=== PATIENT | male | born 1975 | race Caucasian/White ===

== ENCOUNTER 2024-05-25 18:18 | Inpatient (IN) | payer MEDICAID, SELFPAY ==
[2024-05-25] VITALS (21 sets, daily range): BP systolic 83–147; BP diastolic 40–96; PULSE 78–101; RESP 14–24; TEMP 36.6–36.7; O2SAT 97–100; BMI 25.1
--- NOTE | 2024-05-25 18:49 | PD.EDRECHK ---
ED Recheck Abnl Lab Rx-RME/HPI General Chief Complaint: Recheck/Abnormal Lab/Rx Stated Complaint: HYPOGLYCEMIA Time Seen by Provider: 05/25/24 18:36 Source: patient and EMS Arrival date/time: 05/25/24 18:18 Mode of arrival: EMS Limitations: no limitations RME / HPI RME / HPI narrative: Dr. Briones?s Main ED Evaluation: 49-year-old male with a history of cirrhosis and gallstones (not surgically managed due to high risk) presents to the emergency department following a hypoglycemic event. Per EMS report, his fingerstick blood glucose was 33 mg/dL, and he was administered a 250 mL bolus of D10 en route, which improved his glucose to 130 mg/dL. The patient reports that he took his insulin as scheduled today. He also states that he was recently discharged from [facility] after an ICU admission, reportedly related to his cirrhosis. He denies any additional symptoms at this time. He denies any current antibiotics. Related Data Home Medications ?Medication ?Instructions ?Recorded ?Confirmed Glyburide/Metformin Hcl PO BID ##0 10/19/09 (Glyburide-Metformin 5-500 Mg) Insulin Lispro (Humalog Mix 75/25 22 units SQ QAM ##0 10/19/09 Pen) insulin detemir U-100 100 unit/mL 42 unit SQ QPM ##0 10/19/09 (3 mL) subcutaneous pen (Levemir FlexPen) Previous Rx's ?Medication ?Instructions ?Recorded albuterol sulfate 90 mcg/actuation 1 - 2 puff inhalation Q6HR PRN 05/18/16 aerosol inhaler (ProAir HFA) WHEEZING #1 inh Allergies Allergy/AdvReac Type Severity Reaction Status Date / Time NKA* Allergy Uncoded 05/09/12 22:45 Review of Systems Review of Systems Systems Reviewed: All systems reviewed, normal except as documented Past Medical History Past Medical History CARDIAC: Positive Hypertension; Negative Congestive Heart Failure RESPIRATORY: Negative Chronic Obstructive Pulmonary Disease (COPD) GENITOURINARY: Positive Renal Disease ENDOCRINE: Negative Diabetes Mellitus Type 1 Social History SMOKING STATUS: Never smoker ED Exam General Limitations: Present no limitations General appearance: Present alert and in no apparent distress Head Head exam: Present atraumatic Eye Eye exam: Present normal appearance, PERRL and EOMI ENT ENT exam: Present normal exam, normal oropharynx and mucous membranes moist Neck Neck exam: Present normal inspection, full ROM and trachea midline Chest Chest inspection: Present normal inspection and symmetric chest wall rise Respiratory Respiratory exam: Present normal lung sounds bilaterally Cardiovascular Cardiovascular exam: Present regular rate, normal rhythm and normal heart sounds Abdominal Exam Abdominal exam: Present soft and normal bowel sounds Extremities Exam Extremities exam: Present normal inspection and full ROM Back Exam Back exam: Present normal inspection and full ROM Neurological Exam Neurological exam: Present alert, oriented X3 and CN II-XII intact Psychiatric Psychiatric exam: Present normal affect and normal mood Skin Skin exam: Present warm, dry, intact and normal color Course Quality Measures none Orders Category Date Time Status Product Mgr Q4H START 00 Care 05/25/24 19:35 Active Continuous Pulse Oximetry NOW Care 05/25/24 19:35 Completed EKG (ED ONLY) *Do not use* NOW Care 05/25/24 22:17 Completed Miscellaneous Nursing Order NOW Care 05/25/24 19:35 Active EKG (ED Only) Stat Exams 05/25/24 22:17 Draft US liver Stat Exams 05/25/24 23:03 Completed XR chest 1V portable Stat Exams 05/25/24 22:17 Completed Ammonia Stat Lab 05/25/24 23:04 Completed BMP [Basic Metabolic Panel] Stat Lab 05/25/24 19:27 Completed CBC Stat Lab 05/25/24 19:27 Completed Liver Panel Stat Lab 05/25/24 23:02 Completed Magnesium Stat Lab 05/25/24 19:27 Completed Dextrose 10%-Water 1000 ml [D10w 1000 ml] 1,000 ml Med 05/26/24 00:02 Discontinued IV 100 mls/hr Dextrose 5%-0.45% Ns [D5-1/2Ns] 1,000 ml Med 05/25/24 22:16 Discontinued IV 120 mls/hr Dextrose 50% Syr [D50w Syringe Abboject] Med 05/25/24 19:12 Discontinued 100 ml IV .STK-MED ONE Dextrose 50% Syr [D50w Syringe Abboject] Med 05/25/24 21:40 Discontinued 25 ml IV X1 ONE Dextrose 50% Syr [D50w Syringe Abboject] Med 05/25/24 21:45 Discontinued 25 ml IV X1 ONE Dextrose 50% Syr [D50w Syringe Abboject] Med 05/25/24 19:35 Discontinued 50 ml IV X1 ONE Dextrose 50% Syr [D50w Syringe Abboject] Med 05/25/24 22:15 Discontinued 50 ml IV X1 ONE POTASSIUM CHL 10 mEq IVPB [Kcl Ivpb] Med 05/26/24 00:04 Discontinued 10 meq in 100 ml IV Q1H Vital Signs Vital signs: Vital Signs Pulse Rate 89 05/25/24 19:10 Respiratory Rate 18 05/25/24 19:10 Blood Pressure 96/63 05/25/24 19:10 Pulse Oximetry (%) 100 05/25/24 19:10 Oxygen Delivery Method Room Air 05/25/24 19:10 Recheck / Abnormal Lab / Rx MDM Narrative MDM Narrative:: 2240 Blood sugar rechecked at 53. Administered half an amp of D50. Despite interventions, blood glucose continues to decline. Case discussed with the hospitalist team, accepts patient for admission. Scribe Attestation: I, Philipp Garner, am scribing for and in the presence of Dr. Briones. Provider Notation: Although this document has been carefully reviewed, there may still be some phonetic and other typographical errors. These errors are purely grammatical due to imperfections in the software program and should not be construed in any way to compromise the substance of the patient's medical care during this visit. Patient data External records reviewed:: [facility] previous records and EMS form Clinical information provided by:: patient and EMS Social determinants that could affect healthcare access:: alcohol use Patient has the following chronic illnesses:: see PMH How is presenting disease/condition affected by chronic disease/condition?: uneffected by Evaluation data The following diagnostics were reviewed and interpreted by me:: lab results and radiology exam(s) Lab and/or radiology exams considered but not ordered:: n/a Interpretation Summary: CXR shows normal cardiac silhouette, normal sharp diaphragmatic edge, no infiltrates, normal costophrenic angles, according to my interpretation. Medications / Prescriptions Medications or Prescriptions considered but not ordered:: n/a Medication administrations:: Medication Administration History Acetaminophen (Acetaminophen 325 Mg Tablet) 650 mg PO Q6H PRN PRN Reason: Fever >101.5 Stop: 06/25/24 00:13 Dextrose (Dextrose 50%-Water Inj 50 Ml Syringe) 25 ml IV Q15MIN PRN PRN Reason: BG 50-70 responsive npo pt Stop: 06/25/24 00:20 Dextrose (Dextrose 50%-Water Inj 50 Ml Syringe) 50 ml IV Q15MIN PRN PRN Reason: BG <50 OR BG <70 & pt unresponsive Stop: 06/25/24 00:20 Last Admin: 05/26/24 03:44 Dose: 50 ml Documented By: ELLY Folic Acid (Folic Acid 1 Mg Tablet) 1 mg PO BID [facility] Stop: 05/31/24 08:59 Glucagon (Glucagon Inj 1 Mg Vial) 1 mg IM Q15MIN PRN PRN Reason: BG <70, and no IV access Hydralazine HCl (Hydralazine Inj 20 Mg/Ml Vial) 10 mg IV Q2H PRN PRN Reason: SBP >180mmHg Stop: 06/25/24 00:29 Dextrose (D10w) 500 mls @ 100 mls/hr IV .Q5H ONE Stop: 05/26/24 05:29 Last Admin: 05/26/24 00:35 Dose: 100 mls/hr Documented By: CCT Co-signed By: SUZANNE Lorazepam (Lorazepam 2 Mg/Ml Vial) 0.5 mg IV Q2HR PRN PRN Reason: CIWA SCORE 8-13 Stop: 05/31/24 00:23 Lorazepam (Lorazepam 2 Mg/Ml Vial) 1 mg IV Q2HR PRN PRN Reason: CIWA SCORE 14-19 Stop: 05/31/24 00:23 Lorazepam (Lorazepam 2 Mg/Ml Vial) 2 mg IV Q2HR PRN PRN Reason: CIWA SCORE 20-25 Stop: 05/31/24 00:23 Ondansetron HCl (Ondansetron Inj 2 Mg/Ml Inj 2 Ml) 4 mg IV Q6H PRN; Protocol PRN Reason: NAUSEA OR VOMITING Stop: 06/25/24 00:13 Oxycodone/Acetaminophen (Oxycodone/Apap 5/325 Tablet) 1 tab PO Q12H PRN PRN Reason: PAIN SCALE 4-6 (Moderate Stop: 05/31/24 00:13 Pantoprazole Sodium (Pantoprazole Inj 40 Mg Vial) 40 mg IVP QDAY [facility] Stop: 06/25/24 08:59 Phytonadione (Phytonadione Inj 10 Mg/Ml Amp) 10 mg SC QDAY [facility] Stop: 05/29/24 08:59 Thiamine HCl (Thiamine 100 Mg Tablet) 100 mg PO BID [facility] Stop: 05/31/24 00:29 Last Admin: 05/26/24 00:35 Dose: 100 mg Documented By: CCT Discontinued Medications Dextrose (Dextrose 50%-Water Inj 50 Ml Syringe) Confirm Administered Dose 100 ml IV .STK-MED ONE Stop: 05/25/24 19:13 Last Admin: 05/25/24 19:38 Dose: Not Given Documented By: EE Non-Admin Reason: Override Medication Dextrose (Dextrose 50%-Water Inj 50 Ml Syringe) 50 ml IV X1 ONE Stop: 05/25/24 19:36 Last Admin: 05/25/24 19:20 Dose: 50 ml Documented By: EE Dextrose (Dextrose 50%-Water Inj 50 Ml Syringe) 25 ml IV X1 ONE Stop: 05/25/24 21:41 Last Admin: 05/25/24 21:50 Dose: 25 ml Documented By: EE Dextrose (Dextrose 50%-Water Inj 50 Ml Syringe) 25 ml IV X1 ONE Stop: 05/25/24 21:46 Last Admin: 05/25/24 23:25 Dose: Not Given Documented By: EE Non-Admin Reason: Cancelled by Provider Dextrose (Dextrose 50%-Water Inj 50 Ml Syringe) 50 ml IV X1 ONE Stop: 05/25/24 22:16 Last Admin: 05/25/24 22:20 Dose: 50 ml Documented By: WILL Dextrose (Dextrose 50%-Water Inj 50 Ml Syringe) 50 ml IV X1 ONE Stop: 05/26/24 00:22 Last Admin: 05/26/24 00:55 Dose: 50 ml Documented By: EE Glucagon (Glucagon Inj 1 Mg Vial) 1 mg IM X1 ONE Stop: 05/26/24 04:41 Dextrose/Sodium Chloride (D5-1/2ns) 1,000 mls @ 120 mls/hr IV .Q8H20M [facility] Stop: 06/24/24 22:15 Last Infusion: 05/26/24 00:08 Dose: 0 mls/hr Documented By: Admin: 05/25/24 22:33 Dose: 120 mls/hr Documented By: CB Dextrose (D10w 1000 Ml) 1,000 mls @ 100 mls/hr IV .Q10H [facility] Stop: 05/26/24 10:01 Last Admin: 05/26/24 01:55 Dose: Not Given Documented By: EE Non-Admin Reason: Cancelled by Provider Potassium Chloride (Kcl Ivpb) 10 meq in 100 mls @ 100 mls/hr IV Q1H [facility] Stop: 05/26/24 04:03 Last Admin: 05/26/24 04:42 Dose: 100 mls/hr Documented By: Infusion: 05/26/24 02:52 Dose: Infused Documented By: Admin: 05/26/24 01:52 Dose: 100 mls/hr Documented By: Infusion: 05/26/24 01:34 Dose: Infused Documented By: Admin: 05/26/24 00:34 Dose: 100 mls/hr Documented By: CCT Magnesium Sulfate (Magnesium Sulfate Ivpb) 2 gm in 50 mls @ 25 mls/hr IV X1 ONE Stop: 05/26/24 02:29 Last Infusion: 05/26/24 03:59 Dose: Infused Documented By: Admin: 05/26/24 01:52 Dose: 25 mls/hr Documented By: EE Thiamine HCl (Thiamine Inj 100 Mg/Ml Vial 2 Ml) 100 mg IM STAT ONE Stop: 05/26/24 00:26 Last Admin: 05/26/24 01:53 Dose: Not Given Documented By: EE Non-Admin Reason: Duplicate Medication on eMAR as above Consultations Consultation(s) initiated? (list below): Yes Consultation #1 (Physician, Specialty, Details): Hospitalist team was made aware of the patient?s HPI, PMHx, lab and/or radiology results. Discussed treatment plan. Accepts patient for admission. Diagnosis Recheck Differential Diagnosis: other (Medication error, Adverse effect of insulin causing hypoglycemia due to no nutritional intake, suicide attempt) Most likely diagnosis given after review of the tests above:: Hyperinsulinemic hypoglycemia Admission Indicated Admission indicated?: indicated Admission Request Was there a request for admission?: Yes Admission Attestation Admission request attestation: Discussed case with [] from Hospitalist service regarding admission. Discussed patients ED course, exam findings, labs, and radiology results. The Hospitalist [agrees,declines] to accept the patient for admission. Disposition Plan Disposition Plan: Admit Critical Care Time Critical Care Time Critical Care Time: Yes Total Critical Care Time (min.): 45 Attestation: The high probability of sudden, clinically significant deterioration in the patient?s condition required the highest level of my preparedness to intervene urgently. ? The services I provided to this patient were to treat and/or prevent clinically significant deterioration. Services included the following: chart data review, reviewing nursing notes and/or old charts, documentation time, center lead consultant collaboration regarding findings and treatment options, medication orders and management, direct patient care, vital sign assessments and ordering, interpreting and reviewing diagnostic studies and lab tests. ? Aggregate critical care time includes only time during which I was engaged in work directly related to the patient?s care, as described above, whether at bedside or elsewhere in the Emergency Department. It did not include time spent performing other reported procedures or the services of residents, students, nurses or physician assistants. Discharge Plan Plan Patient Disposition: Admit Acute Care w/in Hospital Problem List Clinical Impression: Hyperinsulinemic hypoglycemia
--- NOTE | 2024-05-25 19:10 | PC.NURSE ---
in to assess. pt diaphoretic, speaking 2-3 sentences at a time, alert to self. fsbs check and read md mine García informed. new orders received. pt placed on cardiac monitoring. iv started. will follow up with new orders.
[2024-05-25] MEDS: DEXTROSE 50%-WATER INJ 50 ML SYRINGE IV ×2 (19:20→22:20)
[2024-05-25 20:13] LABS: Anion Gap 12 (7-16); BUN/Creatinine Ratio 24 Ratio (12-20); Blood Urea Nitrogen 17 mg/dL (9-23); Calcium 8.2 mg/dL (8.3-10.6); Chloride 106 mMol/L (98-107); Creatinine (Component) 0.7 mg/dL (0.6-1.3); Glucose 146 mg/dL (74-106); Magnesium 1.6 mg/dL (1.6-2.6); Osmolality,Calculated 280 (275-295); Potassium 3.5 mMol/L (3.4-5.1); Sodium 138 mMol/L (136-145); eGFR > 60 See Note
[2024-05-25] MEDS: DEXTROSE 50%-WATER INJ 50 ML SYRINGE 25 ML IV (21:50)
[2024-05-25 22:08] LABS: Basophils # (Auto) 0.1 Thou/mm3 (0.0-0.2); Basophils % (Auto) 2 % (0-2.5); Eosinophils # (Auto) 0.1 Thou/mm3 (0.0-0.5); Eosinophils % (Auto) 1 % (0-10); Hematocrit 32.8 % (41.0-53.0); Hemoglobin 10.9 g/dL (13.5-16.0); Immature Granulocytes % (Auto) 0 % (0-0); Immature Granulocytes Auto 0.02 Thou/mm3 (0.00-0.00); Lymphocytes # (Auto) 1.2 Thou/mm3 (1.0-4.8); Lymphocytes % (Auto) 23 % (10-50); Mean Corpuscular HGB Conc 33.2 g/dl (31.0-37.0); Mean Corpuscular Hemoglobin 29.9 pg (25.0-35.0); Mean Corpuscular Volume 90 fL (80-100); Monocytes # (Auto) 0.6 Thou/mm3 (0.0-0.8); Monocytes % (Auto) 11 % (0-12); Neutrophils # (Auto) 3.3 Thou/mm3 (1.8-7.7); Neutrophils % (Auto) 63 % (37-80); Nucleated Red Blood Cell % 0 /100 WBC (0); Platelet Count 367 Thou/mm3 (140-440); Red Blood Count 3.65 Miln/mm3 (4.50-5.90); White Blood Count 5.2 Thou/mm3 (3.8-10.6)
--- NOTE | 2024-05-25 22:17 | XR_ITS ---
Examination: AP chest single view Technique: AP portable upright chest single view Exam date and time: May 25, 2024, 2153 hrs. Comparison December 31, 2017 Indications: Shortness of breath today. Findings: Poor inspiratory effort Normal heart size No lobar pneumonia. The osseous structures are intact Impression: Poor inspiratory effort chest x-ray
--- NOTE | 2024-05-25 22:17 | EKG_ITS ---
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
[2024-05-25] MEDS: DEXTROSE 5%-0.45% NS 1,000 ML 120 ML IV (22:33)
--- NOTE | 2024-05-25 23:03 | XR_ITS ---
Examination: Abdomen sonogram, Limited Date and time of exam: June 05, 2024 at 1106 hours Technique: Real-time vo scale transabdominal sonographic images of the upper abdomen obtained. Indications: Cirrhosis Findings: Normal gallbladder. Common bile duct 0.7 cm no stones Pancreatic head 4.0 cm Liver 19.6 cm fatty infiltration smooth contour Normal hepatopedal portal venous flow Patent IVC Impression: Enlarged common bile duct although no definite stones Prominent pancreatic head Consider MRCP follow-up
[2024-05-26] VITALS (103 sets, daily range): BP systolic 93–207; BP diastolic 72–142; PULSE 92–135; RESP 12–100; TEMP 36.2; O2SAT 96–100
--- NOTE | 2024-05-26 00:30 | ESHP_ITS ---
Documentation for date of: 05/26/24 HPI History of Present Illness History of present illness: 49-year-old male with past medical history of hypertension, gastroparesis, IBS, cirrhosis, biliary dyskinesia Deya Y and 2 diagnostic laparoscopies, diverticulosis, gallstone alcohol withdrawal. Came to the ED with chief complaint of injecting 1 whole pen of insulin glargine , he thought he was injecting Mounjaro and by mistake injected his insulin glargine. He was recently discharged from [facility] for alcohol withdrawal. As per the patient he started drinking after second day of discharge and yesterday he almost drank 4-6 shots of vodka and injected his insulin by mistake. There was no intention to harm himself or attempt suicide. As per the ED note his fingerstick was 33 Mg per DL and was administered around 250 bolus of D10 while coming in the hospital. In the ED his blood glucose was 130. he has a history of alcohol use disorder. He was admitted to the [facility] 1 week prior for alcohol withdrawal. Initial vitals in the ED BP?96/63, P?89, respiration?18, temperature 97.9Enlarged common bile duct although no definite stones, Prominent pancreatic head Imaging?chest x-ray?Poor inspiratory effort,Normal heart size,No lobar pneumonia.The osseous structures are intact. Ultrasound of the liver?Enlarged common bile duct although no definite stones, Prominent pancreatic head. PMH- as above PSH- eh-en-Y , 2 diagnostic laproscopies SH : daily drinking since lasr 4 yrs, stays with daughter Allergy: none FH- DM - mother and father , htn, stroke Code : full code Admitted to ICU for close monitoring of blood glucose. Review of Systems Review of Systems Systems Reviewed: All systems reviewed, normal except as documented Narrative Review of Systems: GENERAL: Comfortable adult seen resting comfortably in hospital bed, mild anxious , tatoos b/l hand and chest HEENT: Normocephalic, atraumatic. Pupils are equal and reactive. Oral mucosa is moist. CHEST: Symmetrical, atraumatic and with equal expansion ,Nontender on palpation CARDIOVASCULAR: Heart regular rhythm & rate. S1/S2. no murmur or gallop rub or extra beats. LUNGS: Clear to auscultation bilaterally with symmetrical chest rise. No laboring tachypnea or wheezing. No intercostal subcostal retraction. No rales and no rhonchi. ABDOMEN:distended nontender to palpation, no guarding or rebound tenderness. Active and normal bowel sounds. EXTREMITIES:Moves all 4 extremities,No B/L LE edema. SKIN: Warm and dry, no jaundice or rashes noted. NEURO: Patient is AO x 3, Cranial nerves II through XII grossly intact. There is no focal neurologic deficits noted. PSYCHIATRIC: Patient is in normal mood, cooperative, no SI or HI or hallucinations. Exam Vital Signs Temp Pulse Resp BP Pulse Ox O2 Del Method 98.1 F 94 18 140/81 H 98 Room Air 05/25/24 23:33 05/25/24 23:33 05/25/24 23:33 05/25/24 23:33 05/25/24 23:33 05/25/24 23:33 Results: Labs 05/26/24 05:17 05/26/24 14:19 Labs: Short CBC 05/25/24 Range/Units 19:27 WBC 5.2 (3.8-10.6) Thou/mm3 Hgb 10.9 L (13.5-16.0) g/dL Hct 32.8 L (41.0-53.0) % Plt Count 367 (140-440) Thou/mm3 BMP 05/25/24 19:27 Sodium 138 Potassium 3.5 Chloride 106 Carbon Dioxide 20.0 BUN 17 Creatinine 0.7 Glucose 146 H Calcium 8.2 L Quality Measures Quality Measures none Medications Home Medications and Allergies Home Medications ?Medication ?Instructions ?Recorded ?Confirmed ?Type Glyburide/Metformin Hcl PO BID ##0 10/19/09 History (Glyburide-Metformin 5-500 Mg) Insulin Lispro (Humalog Mix 22 units SQ QAM ##0 10/19/09 History Pen) insulin detemir U-100 100 unit/mL 42 unit SQ QPM ##0 0 10/19/09 History (3 mL) subcutaneous pen (Levemir FlexPen) Allergies Allergy/AdvReac Type Severity Reaction Status Date / Time No Known Allergies Allergy Unverified 05/26/24 08:18 Visit Medications Acetaminophen (Acetaminophen 325 Mg Tablet) 650 mg PO Q6H PRN PRN Reason: Fever >101.5 Stop: 06/25/24 00:13 Dextrose (Dextrose 50%-Water Inj 50 Ml Syringe) 25 ml IV Q15MIN PRN PRN Reason: BG 50-70 responsive npo pt Stop: 06/25/24 00:20 Dextrose (Dextrose 50%-Water Inj 50 Ml Syringe) 50 ml IV Q15MIN PRN PRN Reason: BG <50 OR BG <70 & pt unresponsive Stop: 06/25/24 00:20 Folic Acid (Folic Acid 1 Mg Tablet) 1 mg PO BID [facility] Stop: 05/31/24 08:59 Glucagon (Glucagon Inj 1 Mg Vial) 1 mg IM Q15MIN PRN PRN Reason: BG <70, and no IV access Hydralazine HCl (Hydralazine Inj 20 Mg/Ml Vial) 10 mg IV Q2H PRN PRN Reason: SBP >180mmHg Stop: 06/25/24 00:29 Potassium Chloride (Kcl Ivpb) 10 meq in 100 mls @ 100 mls/hr IV Q1H [facility] Stop: 05/26/24 04:03 Dextrose (D10w) 500 mls @ 100 mls/hr IV .Q5H ONE Stop: 05/26/24 05:29 Lorazepam (Lorazepam 2 Mg/Ml Vial) 0.5 mg IV Q2HR PRN PRN Reason: CIWA SCORE 8-13 Stop: 05/31/24 00:23 Lorazepam (Lorazepam 2 Mg/Ml Vial) 1 mg IV Q2HR PRN PRN Reason: CIWA SCORE 14-19 Stop: 05/31/24 00:23 Lorazepam (Lorazepam 2 Mg/Ml Vial) 2 mg IV Q2HR PRN PRN Reason: CIWA SCORE 20-25 Stop: 05/31/24 00:23 Ondansetron HCl (Ondansetron Inj 2 Mg/Ml Inj 2 Ml) 4 mg IV Q6H PRN; Protocol PRN Reason: NAUSEA OR VOMITING Stop: 06/25/24 00:13 Oxycodone/Acetaminophen (Oxycodone/Apap 5/325 Tablet) 1 tab PO Q12H PRN PRN Reason: PAIN SCALE 4-6 (Moderate Stop: 05/31/24 00:13 Pantoprazole Sodium (Pantoprazole Inj 40 Mg Vial) 40 mg IVP QDAY [facility] Stop: 06/25/24 08:59 Phytonadione (Phytonadione Inj 10 Mg/Ml Amp) 10 mg SC QDAY [facility] Stop: 05/29/24 08:59 Thiamine HCl (Thiamine 100 Mg Tablet) 100 mg PO BID [facility] Stop: 05/31/24 00:29 Discontinued Medications Dextrose (Dextrose 50%-Water Inj 50 Ml Syringe) 50 ml IV X1 ONE Stop: 05/25/24 19:36 Last Admin: 05/25/24 19:20 Dose: 50 ml Dextrose (Dextrose 50%-Water Inj 50 Ml Syringe) 25 ml IV X1 ONE Stop: 05/25/24 21:41 Last Admin: 05/25/24 21:50 Dose: 25 ml Dextrose (Dextrose 50%-Water Inj 50 Ml Syringe) 25 ml IV X1 ONE Stop: 05/25/24 21:46 Last Admin: 05/25/24 23:25 Dose: Not Given Dextrose (Dextrose 50%-Water Inj 50 Ml Syringe) 50 ml IV X1 ONE Stop: 05/25/24 22:16 Last Admin: 05/25/24 22:20 Dose: 50 ml Dextrose (Dextrose 50%-Water Inj 50 Ml Syringe) 50 ml IV X1 ONE Stop: 05/26/24 00:22 Dextrose/Sodium Chloride (D5-1/2ns) 1,000 mls @ 120 mls/hr IV .Q8H20M [facility] Stop: 06/24/24 22:15 Last Infusion: 05/26/24 00:08 Dose: 0 mls/hr Dextrose (D10w 1000 Ml) 1,000 mls @ 100 mls/hr IV .Q10H [facility] Stop: 05/26/24 10:01 Thiamine HCl (Thiamine Inj 100 Mg/Ml Vial 2 Ml) 100 mg IM STAT ONE Stop: 05/26/24 00:26 Assessment & Plan Plan 49-year-old male with past medical history of hypertension, gastroparesis, IBS, cirrhosis, biliary dyskinesia Deya Y and 2 diagnostic laparoscopies, diverticulosis, gallstone alcohol withdrawal. Came to the ED with chief complaint of injecting 1 whole pen of insulin glargine , he thought he was injecting Mounjaro and by mistake injected his insulin glargine. He was recently discharged from [facility] for alcohol withdrawal. As per the patient he started drinking after second day of discharge and yesterday he almost drank 4-6 shots of vodka and injected his insulin by mistake. There was no intention to harm himself or attempt suicide. As per the ED note his fingerstick was 33 Mg per ems and was administered around 250 bolus of D10 while coming in the hospital. In the ED his blood glucose was 130. he has a history of alcohol use disorder. He was admitted to the [facility] 1 week prior for alcohol withdrawal. 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 -thiamine and folic acid RESPI Stable -Aspitation preuation with HOB elevation 30-45 CVS #h/o HTN -he takes home Amlodipine, carvedilol 25, hydrochlorothiazide 12.5 ,lisinopril 40 - will continue his home medication GI #Cirrhosis #h/o gastroperesis #IBS #biliary dyskinesia #h/0 Deya Y #Transaminitis - protonix 40 Q day -Ast-639. ALt-482 , alk phosp-423 -CT scan from the [facility] showed on 05/19/24 - marked hepatomegaly -most likely in the setting of alcoholic hepatitis -will follow am cogulation pannel -Enlarged common bile duct although no definite stones, Prominent pancreatic head -Transaminitis trending down -he needs out patient GI workup ENDO #hypoglycemia -yesterday he almost drank 4-6 shots of vodka and injected his insulin by mistake.(almost 250 U of lantus ) -fingerstick was 33 Mg per ems and was administered around 250 bolus of D10 while coming in the hospital. -In the ED his blood glucose was 130 -she got multiple D50 at ED -Started the patient on D25 @100 ml -will give him juice , icecream , bananas -will do Q1 hr blood checks - # History of type 2 diabetes mellitus -Patient takes 15 units of glargine twice daily at home and Mounjaro -His hypertensive medication is on hold secondary to accidental overdose of his long-acting HEME # Normocytic anemia -On admission his hemoglobin was 11.6 -Most likely secondary to chronic alcohol use -Transfuse hb < 7 RENAL #Hyposmolar hyponatremia -his sodium on admission was 131 , -most likely secondary to alcohol use and underlying liver disease with the fluids that we gave . (D10, d25 ) -started on sodium tablets 1gm tid -will follow morning labs ID - Stable Disposition:Admitted to ICU for hypoglycemia Diet and fluids:currently normal, once hypoglycemia resolved then diabetic DVT prophylaxis:heparin GI prophylaxis:protonix CODE STATUS:full code Case discussed with my attending Devan Rodas MD, PGY-3
[2024-05-26] MEDS: POTASSIUM CHL 10 mEq IVPB 10 MEQ/100 ML BAG 100 MEQ IV ×4 (00:34→06:01)
[2024-05-26] MEDS: THIAMINE 100 MG TABLET PO ×3 (00:35→20:31)
[2024-05-26] MEDS: DEXTROSE 10%-WATER 500 ML 100 ML IV ×2 (00:35→06:36)
[2024-05-26 00:38] LABS: Ammonia 56 uMol/L (11-32)
[2024-05-26 00:41] LABS: Alanine Aminotransferase 521 U/L (10-49); Alkaline Phosphatase 423 U/L (46-116); Aspartate Amino Transferase 804 U/L (0-34); Bilirubin,Direct 1.3 mg/dL (0.0-0.3); Bilirubin,Total 2.1 mg/dL (0.3-1.2); Total Protein 5.3 gm/dL (5.7-8.2)
[2024-05-26] MEDS: DEXTROSE 50%-WATER INJ 50 ML SYRINGE IV ×4 (00:55→07:20)
[2024-05-26] MEDS: Magnesium Sulfate 2 GM Ivpb 2 GM/50 ML BAG IV (01:52)
[2024-05-26 01:53] LABS: Alcohol, Blood Medical 51.4 mg/dL (0-10.0)
--- NOTE | 2024-05-26 04:30 | PC.NURSE ---
Pt admitted to copywriter that he did take a full syringe of his Lantus, pt denies SI. Pt states he took full syringe of insulin because he was intoxicated and accidentally gave self full syringe. Kathy Mittal informed and pt place on si precaution and 1:1 obs. Charge nurse made aware, and house sup informed, per [place] sup no sitter avaliable at this time, daughter is at bedside, and will remind with him at this time.
[2024-05-26] MEDS: hydrALAZINE INJ 20 MG/ML VIAL 10 MG IV (05:04)
[2024-05-26] MEDS: GLUCAGON INJ 1 MG VIAL IM (05:08)
[2024-05-26 05:12] LABS: Amphetamine/Methamp Scrn,U Negative (Negative); Barbiturate Screen,Urine Negative (Negative); Benzodiazepines Screen,Urine Positive (Negative); Benzoylecgonine Screen, Ur Negative (Negative); Fentanyl Screen,Urine Negative (Negative); Opiate Screen,Urine Negative (Negative); THC Screen,Urine Negative (Negative)
[2024-05-26 05:52] LABS: Basophils # (Auto) 0.1 Thou/mm3 (0.0-0.2); Basophils % (Auto) 1 % (0-2.5); Eosinophils # (Auto) 0.1 Thou/mm3 (0.0-0.5); Eosinophils % (Auto) 1 % (0-10); Hemoglobin 11.6 g/dL (13.5-16.0); Immature Granulocytes % (Auto) 1 % (0-0); Immature Granulocytes Auto 0.07 Thou/mm3 (0.00-0.00); Lymphocytes # (Auto) 0.9 Thou/mm3 (1.0-4.8); Lymphocytes % (Auto) 15 % (10-50); Mean Corpuscular HGB Conc 34.1 g/dl (31.0-37.0); Mean Corpuscular Hemoglobin 29.8 pg (25.0-35.0); Mean Corpuscular Volume 87 fL (80-100); Monocytes # (Auto) 0.7 Thou/mm3 (0.0-0.8); Monocytes % (Auto) 10 % (0-12); Neutrophils # (Auto) 4.6 Thou/mm3 (1.8-7.7); Neutrophils % (Auto) 73 % (37-80); Nucleated Red Blood Cell % 0 /100 WBC (0); Platelet Count 353 Thou/mm3 (140-440); RDW Standard Deviation 54.9 fL (35.1-43.9); Red Blood Count 3.89 Miln/mm3 (4.50-5.90); White Blood Count 6.4 Thou/mm3 (3.8-10.6)
[2024-05-26 06:20] LABS: Alanine Aminotransferase 482 U/L (10-49); Albumin/Globulin Ratio 1.1 (1.2-2.2); Alkaline Phosphatase 423 U/L (46-116); Anion Gap 10 (7-16); Aspartate Amino Transferase 639 U/L (0-34); BUN/Creatinine Ratio 17 Ratio (12-20); Bilirubin,Total 2.4 mg/dL (0.3-1.2); Blood Urea Nitrogen 12 mg/dL (9-23); Calcium 8.5 mg/dL (8.3-10.6); Calcium (Corrected) 9.3 mg/dL (8.5-10.1); Carbon Dioxide 24.5 mMol/L (20.0-31.0); Chloride 96 mMol/L (98-107); Creatinine (Component) 0.7 mg/dL (0.6-1.3); Globulin 2.7 gm/dL (2.3-3.5); Glucose 179 mg/dL (74-106); Magnesium 1.6 mg/dL (1.6-2.6); Osmolality,Calculated 264 (275-295); Potassium 4.3 mMol/L (3.4-5.1); Sodium 130 mMol/L (136-145); Total Protein 5.7 gm/dL (5.7-8.2); eGFR > 60 See Note
--- NOTE | 2024-05-26 06:53 | PC.NURSE ---
Pt up and using bedside commode with stand by assist.
--- NOTE | 2024-05-26 07:25 | PC.NURSE ---
pulled d50 from crash cart non available in pixis, pt blood sugar 51.
[2024-05-26] MEDS: PHYTONADIONE INJ 10 MG/ML AMP SC (09:11)
[2024-05-26] MEDS: PANTOPRAZOLE INJ 40 MG VIAL IVP (09:11)
[2024-05-26] MEDS: SODIUM CHLORIDE 0.9% IV (09:11)
[2024-05-26] MEDS: FOLIC ACID 1 MG TABLET PO ×2 (09:11→20:30)
[2024-05-26] MEDS: PHENOBARBITAL IV (09:11)
[2024-05-26] MEDS: DEXTROSE 50% SYR 187.5 ML in DEXTROSE 10%-WATER 312.5 ML 100 ML IV ×3 (09:57→20:37)
[2024-05-26] MEDS: amLODIPine BESYLATE 5 MG TABLET 10 MG PO (12:10)
[2024-05-26] MEDS: carVEDILOL 12.5 MG TABLET PO (12:10)
[2024-05-26] MEDS: chlordiazePOXIDE HCl 25 MG CAPSULE PO ×2 (12:10→20:30)
[2024-05-26] MEDS: HEPARIN SOD INJ 5000 UNIT/ML VIAL SC ×2 (12:11→20:36)
--- NOTE | 2024-05-26 13:00 | PC.SS ---
SHOP CLERK conducted bedside contact with the patient conduct initial assessment and to discuss discharge planning.? At bedside with patient was daughter, Micheline Flores .Patient does not utilize DME to assist with ambulation. Patient does not utilize home oxygen.? Patient does not require assistance with the completion of ADL?s.? Patient?s medical surrogate decision maker is mother, Bee Flores .? Patient utilizes [facility] for PCP services.? The patient sees Dr. Rodriguez for GI services.? The patient does not participate with dialysis. ?Patient utilizes [facility] for medication services.? Discharge plan is for the patient to return home at the time of discharge.? No further intervention required at this time, social worker assistant will be available to address any further concerns.? Next of Kin: Michelinesa Flores D/C Plan: Home
--- NOTE | 2024-05-26 13:44 | ESPR_ITS ---
Documentation for date of: 05/26/24 Subjective Subjective Interval history: This is a 49-year-old male who presents to the ER for accidental insulin overdose. He was recently discharged from [facility] 5 days prior to presentation. He had been admitted to [facility] for alcohol withdrawal. States that he was sober for 2 days and then started drinking vodka once more. States that he drinks at least 12 shots of vodka a day if not more. Yesterday evening after a couple of shots of vodka he went to give himself Mounjaro however made a mistake and gave himself Lantus. States that the Lantus pen was approximately three quarters full. He presented to the ER and was found to be hypoglycemic. He has been started on a D10 drip with persistent hypoglycemia. He was given several amps of D50 in the ER along with multiple glasses of orange juice. He was given glucagon however remains intermittently hypoglycemic. He is awake alert and oriented as well as conversant. Critical Care Note Critical care time (min.): 45 Exam Vital Signs Temp Pulse Resp BP Pulse Ox O2 Del Method 97.1 F 115 H 32 H 187/96 H 100 Room Air 05/26/24 02:00 05/26/24 12:10 05/26/24 08:38 05/26/24 12:10 05/26/24 05:45 05/26/24 05:45 Narrative Exam General-no acute distress, awake alert and oriented, normal body habitus HEENT-normocephalic, atraumatic, sclera icteric, pupils equal reactive, EOMI, oral mucosa is hydrated, no cervical adenopathy Chest-lungs clear to auscultation bilaterally, heart regular rhythmic, no bruits or murmurs, no increased work of breathing Abdomen-soft, nontender, bowel sounds present, no rebound or guarding Extremities-pulses palpable, no clubbing, no mottling, moves all 4 Drips D10 Physical Exam Completion Physical Exam Complete?: Yes 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 And 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 Labs 05/26/24 05:17 05/26/24 05:17 Labs: Laboratory Results - last 24 hr 05/25/24 05/25/24 05/26/24 00:00 19:27 01:00 WBC 5.2 RBC 3.65 L Hgb 10.9 L Hct 32.8 L MCV 90 MCH 29.9 MCHC 33.2 RDW Std Deviation 59.0 H Plt Count 367 Neut % (Auto) 63 Lymph % (Auto) 23 Nelson % (Auto) 11 Eos % (Auto) 1 Baso % (Auto) 2 Neut # (Auto) 3.3 Lymph # (Auto) 1.2 Nelson # (Auto) 0.6 Eos # (Auto) 0.1 Baso # (Auto) 0.1 Immature Gran # (Auto) 0.02 H Absolute Nucleated RBC 0.00 Immature Gran % 0 Nucleated RBC % 0 Sodium 138 Potassium 3.5 Chloride 106 Carbon Dioxide 20.0 Anion Gap 12 BUN 17 Creatinine 0.7 Estim Creat Clear Calc 136.0 eGFR > 60 BUN/Creatinine Ratio 24 H Glucose 146 H Calculated Osmolality 280 Calcium 8.2 L Corrected Calcium Magnesium 1.6 Total Bilirubin 2.1 H Direct Bilirubin 1.3 H AST 804 H* ALT 521 H* Alkaline Phosphatase 423 H Ammonia 56 H Total Protein 5.3 L Albumin 3.0 L Globulin Albumin/Globulin Ratio Urine Opiates Screen Urine Fentanyl Screen Ur Barbiturates Screen U Amphetamin/Meth Scrn U Benzodiazepines Scrn U Cocaine Metab Screen U Marijuana (THC) Screen Ethyl Alcohol 51.4 H 05/26/24 05/26/24 04:40 05:17 WBC 6.4 RBC 3.89 L Hgb 11.6 L Hct 34.0 L MCV 87 MCH 29.8 MCHC 34.1 RDW Std Deviation 54.9 H Plt Count 353 Neut % (Auto) 73 Lymph % (Auto) 15 Nelson % (Auto) 10 Eos % (Auto) 1 Baso % (Auto) 1 Neut # (Auto) 4.6 Lymph # (Auto) 0.9 L Nelson # (Auto) 0.7 Eos # (Auto) 0.1 Baso # (Auto) 0.1 Immature Gran # (Auto) 0.07 H Absolute Nucleated RBC 0.00 Immature Gran % 1 H Nucleated RBC % 0 Sodium 130 L Potassium 4.3 D Chloride 96 L Carbon Dioxide 24.5 Anion Gap 10 BUN 12 Creatinine 0.7 Estim Creat Clear Calc 136.0 eGFR > 60 BUN/Creatinine Ratio 17 Glucose 179 H Calculated Osmolality 264 L Calcium 8.5 Corrected Calcium 9.3 Magnesium 1.6 Total Bilirubin 2.4 H Direct Bilirubin AST 639 H* ALT 482 H Alkaline Phosphatase 423 H Ammonia Total Protein 5.7 Albumin 3.0 L Globulin 2.7 Albumin/Globulin Ratio 1.1 L Urine Opiates Screen Negative Urine Fentanyl Screen Negative Ur Barbiturates Screen Negative U Amphetamin/Meth Scrn Negative U Benzodiazepines Scrn Positive A U Cocaine Metab Screen Negative U Marijuana (THC) Screen Negative Ethyl Alcohol Assessment & Plan Additional Plan Additional Plan: In summary this is a 49-year-old male admitted to the ICU for persistent hypoglycemia after accidental 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 He has been started on phenobarbital with as needed Ativan and CIWA protocol. Will be started on Precedex as needed and will consider Librium p.o. He has received thiamine, folate and Multivite. He has been educated as to his alcohol disease and consumption. CV Hypertension-patient is severely hypertensive likely exacerbated by his withdrawal. Have resumed home meds ? h/o ETOH cardiomyopathy- echo pending Resp Stable Renal Hyponatremia-patient has had a drop in his sodium from 1 38-1 30. He has also been on 100 cc an hour of D10 drip. She is currently on a D25 drip. Will repeat sodium and if his sodium is persistently low we will switch fluids to NS 25 GI Alcoholic [id number] on repeat labs, will eval need for steroids Endo Diabetes-patient is on multiple medications for his diabetes. He accidentally gave himself an overdose of Lantus and is thus persistently hypoglycemic today. His D10 is switched out to be 25 drip. He has been given juice, fruit and ice cream to consume for his hypoglycemia. Will continue with every hour fingerstick checks Heme Anemia-no active bleed noted, minimal, will follow DVT proph- lovenox ID Stable case d/w ICU team labs, imaging, records reviewed ~45ccmin required for eval, exam, review , intervention , discussion and POC for this critically ill patient with accidental insulin overdose and persistent hypoglycemia at high risk for further and ongoing decompensation Provider Notation Provider Notation: Although this document has been carefully reviewed, there may still be some phonetic and other typographical errors. These errors are purely grammatical due to imperfections in the software program and should not be construed in any way to compromise the substance of the patient's medical care during this visit. Thank you for the opportunity and privilege in assisting you with this patient's care and management.
[2024-05-26 15:04] LABS: Anion Gap 10 (7-16); BUN/Creatinine Ratio 11 Ratio (12-20); Blood Urea Nitrogen 8 mg/dL (9-23); Calcium 8.6 mg/dL (8.3-10.6); Carbon Dioxide 23.4 mMol/L (20.0-31.0); Chloride 98 mMol/L (98-107); Creatinine (Component) 0.7 mg/dL (0.6-1.3); Glucose 136 mg/dL (74-106); Osmolality,Calculated 262 (275-295); Potassium 4.2 mMol/L (3.4-5.1); Sodium 131 mMol/L (136-145); eGFR > 60 See Note
[2024-05-26] MEDS: SODIUM CHLORIDE 1 GM TABLET PO ×2 (15:42→20:31)
[2024-05-26] MEDS: hydroCHLOROthiazide 12.5 MG CAPSULE PO (15:45)
[2024-05-26] MEDS: Lisinopril 20 MG TABLET 40 MG PO (15:59)
[2024-05-26] MEDS: PHENobarbital INJ 130 MG/1 ML VIAL IVP (18:00)
[2024-05-26] MEDS: carVEDILOL 12.5 MG TABLET 25 MG PO (18:00)
--- NOTE | 2024-05-26 19:22 | PC.NURSE ---
Dr. Dimas made aware of patient wanting to leave AMA, Let me take a look at the chart . Patient compliant at this time as is q1hr sugar checks. Patient alert and oriented and gcs 15.
[2024-05-26] MEDS: LORazepam 2 MG/ML VIAL 0.5 MG IVP ×2 (20:31→23:29)
[2024-05-26] MEDS: METOCLOPRAMIDE INJ 5 MG/ML VIAL 2 ML IVP (20:41)
[2024-05-26] MEDS: ACETAMINOPHEN 325 MG TABLET 650 MG PO (21:12)
[2024-05-27] VITALS (103 sets, daily range): BP systolic 74–136; BP diastolic 44–103; PULSE 101–124; RESP 12–99; TEMP 36.2–36.9; O2SAT 82–100
[2024-05-27] MEDS: DEXTROSE 50% SYR 187.5 ML in DEXTROSE 10%-WATER 312.5 ML 100 ML IV ×3 (01:00→23:10)
[2024-05-27] MEDS: DEXTROSE 50%-WATER INJ 50 ML SYRINGE IV ×2 (02:15→04:45)
[2024-05-27] MEDS: LORazepam 2 MG/ML VIAL 0.5 MG IVP ×5 (02:29→22:48)
[2024-05-27] MEDS: DEXTROSE 50% SYR 187.5 ML in DEXTROSE 10%-WATER 312.5 ML 150 ML IV ×3 (04:57→13:19)
[2024-05-27] MEDS: HEPARIN SOD INJ 5000 UNIT/ML VIAL SC ×3 (05:10→21:09)
[2024-05-27] MEDS: chlordiazePOXIDE HCl 25 MG CAPSULE PO ×3 (05:10→21:09)
[2024-05-27] MEDS: SODIUM CHLORIDE 1 GM TABLET PO ×3 (05:10→21:09)
[2024-05-27 06:09] LABS: Basophils # (Auto) 0.1 Thou/mm3 (0.0-0.2); Basophils % (Auto) 1 % (0-2.5); Eosinophils # (Auto) 0.1 Thou/mm3 (0.0-0.5); Eosinophils % (Auto) 1 % (0-10); Hematocrit 33.1 % (41.0-53.0); Hemoglobin 11.3 g/dL (13.5-16.0); Immature Granulocytes % (Auto) 3 % (0-0); Immature Granulocytes Auto 0.26 Thou/mm3 (0.00-0.00); Lymphocytes # (Auto) 1.6 Thou/mm3 (1.0-4.8); Lymphocytes % (Auto) 18 % (10-50); Mean Corpuscular HGB Conc 34.1 g/dl (31.0-37.0); Mean Corpuscular Hemoglobin 30.1 pg (25.0-35.0); Mean Corpuscular Volume 88 fL (80-100); Monocytes # (Auto) 0.8 Thou/mm3 (0.0-0.8); Monocytes % (Auto) 10 % (0-12); Neutrophils # (Auto) 5.7 Thou/mm3 (1.8-7.7); Neutrophils % (Auto) 67 % (37-80); Nucleated Red Blood Cell # 0.02 Thou/mm3 (0.00-0.00); Nucleated Red Blood Cell % 0 /100 WBC (0); Platelet Count 344 Thou/mm3 (140-440); RDW Standard Deviation 56.7 fL (35.1-43.9); Red Blood Count 3.75 Miln/mm3 (4.50-5.90); White Blood Count 8.5 Thou/mm3 (3.8-10.6)
[2024-05-27] MEDS: DEXTROSE 50%-WATER INJ 50 ML SYRINGE 25 ML IV (06:30)
[2024-05-27 06:37] LABS: INR 0.9 (0.9-1.3)
[2024-05-27 06:42] LABS: Alanine Aminotransferase 343 U/L (10-49); Albumin, Serum 2.9 gm/dL (3.5-5.0); Albumin/Globulin Ratio 1.2 (1.2-2.2); Alkaline Phosphatase 412 U/L (46-116); Anion Gap 11 (7-16); Aspartate Amino Transferase 294 U/L (0-34); BUN/Creatinine Ratio 8 Ratio (12-20); Bilirubin,Total 2.3 mg/dL (0.3-1.2); Blood Urea Nitrogen 6 mg/dL (9-23); Calcium 8.9 mg/dL (8.3-10.6); Calcium (Corrected) 9.8 mg/dL (8.5-10.1); Carbon Dioxide 23.3 mMol/L (20.0-31.0); Chloride 96 mMol/L (98-107); Creatinine (Component) 0.8 mg/dL (0.6-1.3); Globulin 2.4 gm/dL (2.3-3.5); Glucose 108 mg/dL (74-106); Magnesium 1.4 mg/dL (1.6-2.6); Osmolality,Calculated 259 (275-295); Potassium 3.3 mMol/L (3.4-5.1); Sodium 130 mMol/L (136-145); Thyroid Stimulating Hormone 2.08 uIU/mL (0.55-4.78); Total Protein 5.3 gm/dL (5.7-8.2); eGFR > 60 See Note
--- NOTE | 2024-05-27 07:25 | PD.RESPRO ---
Documentation for date of: 05/27/24 Subjective Subjective Interval history: BG occasionally dropped for 40-50s over the last 12 hours requiring occasional D50 pushes PRN. Exam Vital Signs Temp Pulse Resp BP Pulse Ox O2 Del Method 97.9 F 108 H 13 102/75 99 Room Air 05/27/24 04:00 05/27/24 06:00 05/27/24 06:00 05/27/24 06:00 05/27/24 06:00 05/26/24 05:45 Narrative Exam GENERAL: Comfortable adult seen resting comfortably in hospital bed, mild anxious , tatoos b/l hand and chest HEENT: Normocephalic, atraumatic. Pupils are equal and reactive. Oral mucosa is moist. CHEST: Symmetrical, atraumatic and with equal expansion ,Nontender on palpation CARDIOVASCULAR: Heart regular rhythm & rate. S1/S2. no murmur or gallop rub or extra beats. LUNGS: Clear to auscultation bilaterally with symmetrical chest rise. No laboring tachypnea or wheezing. No intercostal subcostal retraction. No rales and no rhonchi. ABDOMEN:distended nontender to palpation, no guarding or rebound tenderness. Active and normal bowel sounds. EXTREMITIES:Moves all 4 extremities,No B/L LE edema. SKIN: Warm and dry, no jaundice or rashes noted. NEURO: Patient is AO x 3, Cranial nerves II through XII grossly intact. There is no focal neurologic deficits noted. PSYCHIATRIC: Patient is in normal mood, cooperative, no SI or HI or hallucinations. Objective Labs 05/27/24 04:30 05/27/24 04:30 Labs: Laboratory Results - last 24 hr 05/26/24 05/27/24 14:19 04:30 WBC 8.5 RBC 3.75 L Hgb 11.3 L Hct 33.1 L MCV 88 MCH 30.1 MCHC 34.1 RDW Std Deviation 56.7 H Plt Count 344 Neut % (Auto) 67 Lymph % (Auto) 18 [place] % (Auto) 10 Eos % (Auto) 1 Baso % (Auto) 1 Neut # (Auto) 5.7 Lymph # (Auto) 1.6 [place] # (Auto) 0.8 Eos # (Auto) 0.1 Baso # (Auto) 0.1 Immature Gran # (Auto) 0.26 H Absolute Nucleated RBC 0.02 H Immature Gran % 3 H Nucleated RBC % 0 PT 10.0 INR 0.9 APTT 25.0 Sodium 131 L 130 L Potassium 4.2 3.3 L D Chloride 98 96 L Carbon Dioxide 23.4 23.3 Anion Gap 10 11 BUN 8 L 6 L Creatinine 0.7 0.8 Estim Creat Clear Calc 136.0 119.0 eGFR > 60 > 60 BUN/Creatinine Ratio 11 L 8 L Glucose 136 H 108 H Calculated Osmolality 262 L 259 L Calcium 8.6 8.9 Corrected Calcium 9.8 Phosphorus 3.0 Magnesium 1.4 L Total Bilirubin 2.3 H AST 294 H ALT 343 H Alkaline Phosphatase 412 H Total Protein 5.3 L Albumin 2.9 L Globulin 2.4 Albumin/Globulin Ratio 1.2 TSH 2.08 Quality Measures Quality Measures none Assessment & Plan Assessment Current Active Medications: Generic Name Dose Route Start Last Admin Trade Name Freq PRN Reason Stop Dose Admin Acetaminophen 650 mg 05/26/24 00:14 05/26/24 21:12 Acetaminophen 325 Mg Tablet PO 06/25/24 00:13 650 mg Q6H PRN Administration Fever >101.5 Amlodipine Besylate 10 mg 05/26/24 11:30 05/26/24 12:10 Amlodipine Besylate 5 Mg Tablet PO 06/25/24 11:29 10 mg QDAY ROSELINE Administration Carvedilol 25 mg 05/26/24 17:30 05/26/24 18:00 Carvedilol 12.5 Mg Tablet PO 06/25/24 17:29 25 mg BIDWM ROSELINE Administration Chlordiazepoxide HCl 25 mg 05/26/24 11:10 05/27/24 05:10 Chlordiazepoxide Hcl 25 Mg Capsule PO 05/31/24 11:09 25 mg TID ROSELINE Administration Dextrose 25 ml 05/26/24 00:21 05/27/24 06:30 Dextrose 50%-Water Inj 50 Ml Syringe IV 06/25/24 00:20 25 ml Q15MIN PRN Administration BG 50-70 responsive npo pt Dextrose 50 ml 05/26/24 00:21 05/27/24 04:45 Dextrose 50%-Water Inj 50 Ml Syringe IV 06/25/24 00:20 50 ml Q15MIN PRN Administration BG <50 OR BG <70 & pt unresponsive Folic Acid 1 mg 05/26/24 09:00 05/26/24 20:30 Folic Acid 1 Mg Tablet PO 05/31/24 08:59 1 mg BID ROSELINE Administration Glucagon 1 mg 05/26/24 00:21 Glucagon Inj 1 Mg Vial IM Q15MIN PRN BG <70, and no IV access Heparin Sodium (Porcine) 5,000 unit 05/26/24 11:00 05/27/24 05:10 Heparin Sod Inj 5000 Unit/Ml Vial SC 06/09/24 10:59 5,000 unit Q8HR ROSELNIE Administration Hydralazine HCl 10 mg 05/26/24 00:26 05/26/24 05:04 Hydralazine Inj 20 Mg/Ml Vial IV 06/25/24 00:29 10 mg Q2H PRN Administration SBP >180mmHg Hydrochlorothiazide 12.5 mg 05/26/24 15:00 05/26/24 15:45 Hydrochlorothiazide 12.5 Mg Capsule PO 06/25/24 14:59 12.5 mg QDAY ROSELINE Administration Dextrose 500 mls @ 100 mls/hr 05/26/24 06:45 05/26/24 06:36 D10w IV 100 mls/hr .Q5H ROSELINE Administration Dextrose 187.5 ml/ Dextrose 500 mls @ 100 mls/hr 05/26/24 09:30 05/27/24 04:57 IV 06/25/24 09:29 150 mls/hr .Q5H ROSELINE Administration Protocol Lisinopril 40 mg 05/26/24 15:00 05/26/24 15:59 Lisinopril 20 Mg Tablet PO 06/25/24 14:59 40 mg QDAY ROSELINE Administration Lorazepam 0.5 mg 05/26/24 20:07 05/27/24 02:29 Lorazepam 2 Mg/Ml Vial IVP 05/31/24 20:06 0.5 mg Q3HR PRN Administration ANXIETY Metoclopramide HCl 5 mg 05/26/24 11:29 05/26/24 20:41 Metoclopramide Inj 5 Mg/Ml Vial 2 Ml IVP 06/25/24 11:59 5 mg Q6HR PRN Administration nausea Protocol Pantoprazole Sodium 40 mg 05/26/24 09:00 05/26/24 09:11 Pantoprazole Inj 40 Mg Vial IVP 06/25/24 08:59 40 mg QDAY ROSELINE Administration Sodium Chloride 1 gm 05/26/24 14:15 05/27/24 05:10 Sodium Chloride 1 Gm Tablet PO 06/25/24 14:14 1 gm TID ROSELINE Administration Thiamine HCl 100 mg 05/26/24 00:30 05/26/24 20:31 Thiamine 100 Mg Tablet PO 05/31/24 00:29 100 mg BID ROSELINE Administration Plan 49-year-old male with past medical history of hypertension, gastroparesis, IBS, cirrhosis, biliary dyskinesia Deya Y and 2 diagnostic laparoscopies, diverticulosis, gallstone alcohol withdrawal. Came to the ED with chief complaint of injecting 1 whole pen of insulin glargine , he thought he was injecting Mounjaro and by mistake injected his insulin glargine. He was recently discharged from [facility] for alcohol withdrawal. As per the patient he started drinking after second day of discharge and yesterday he almost drank 4-6 shots of vodka and injected his insulin by mistake. There was no intention to harm himself or attempt suicide. As per the ED note his fingerstick was 33 Mg per ems and was administered around 250 bolus of D10 while coming in the hospital. In the ED his blood glucose was 130. he has a history of alcohol use disorder. He was admitted to [facility] 1 week prior for alcohol withdrawal. 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 -thiamine and folic acid RESPI Stable -Aspiration precaution with HOB elevation 30-45 CVS #h/o HTN -he takes home Amlodipine, carvedilol 25, hydrochlorothiazide 12.5 ,lisinopril 40 - will continue his home medication GI #Cirrhosis #h/o gastroperesis #IBS #biliary dyskinesia #h/0 Deya Y #Transaminitis Enlarged common bile duct although no definite stones, Prominent pancreatic head CT scan from [facility] showed on 05/19/24 - marked hepatomegaly - protonix 40 Q day -most likely in the setting of alcoholic hepatitis -will follow am cogulation pannel -Transaminitis trending down -he needs out patient GI workup ENDO #hypoglycemia injected his insulin by mistake.(almost 250 U of lantus ) -Started the patient on D25 @100 ml -will give him juice , icecream , bananas -will do Q1 hr blood checks # History of type 2 diabetes mellitus -Patient takes 15 units of glargine twice daily at home and Mounjaro -His hypertensive medication is on hold secondary to accidental overdose of his long-acting HEME # Normocytic anemia -On admission his hemoglobin was 11.6 -Most likely secondary to chronic alcohol use -Transfuse hb < 7 RENAL #Hyposmolar hyponatremia #Hypochloremia -his sodium on admission was 131 , -most likely secondary to alcohol use and underlying liver disease with the fluids that we gave . (D10, d25 ) -started on sodium tablets 1gm tid -will follow morning labs # hypomagnesemia likely secondary to alcohol use -monitor and replete PRN ID - Stable Disposition:Admitted to ICU for hypoglycemia Diet and fluids:currently normal, once hypoglycemia resolved then diabetic DVT prophylaxis:heparin GI prophylaxis:protonix CODE STATUS:full code
[2024-05-27] MEDS: METOCLOPRAMIDE INJ 5 MG/ML VIAL 2 ML IVP ×3 (07:31→20:02)
[2024-05-27] MEDS: carVEDILOL 12.5 MG TABLET 25 MG PO ×2 (07:57→17:41)
[2024-05-27] MEDS: Magnesium Sulfate 2 GM Ivpb 2 GM/50 ML BAG IV ×2 (08:07→11:11)
[2024-05-27] MEDS: PANTOPRAZOLE INJ 40 MG VIAL IVP (08:07)
[2024-05-27] MEDS: amLODIPine BESYLATE 5 MG TABLET 10 MG PO (08:07)
[2024-05-27] MEDS: hydroCHLOROthiazide 12.5 MG CAPSULE PO (08:08)
[2024-05-27] MEDS: FOLIC ACID 1 MG TABLET PO ×2 (08:08→21:09)
[2024-05-27] MEDS: POTASSIUM CHLORIDE 20 mEq TABCR 40 MEQ PO (08:11)
[2024-05-27] MEDS: THIAMINE 100 MG TABLET PO ×2 (08:25→21:09)
--- NOTE | 2024-05-27 15:07 | PD.INTPROG ---
Documentation for date of: 05/27/24 Subjective Subjective Interval history: This is a 49-year-old male who presents to the ER for accidental insulin overdose. He was recently discharged from [facility] 5 days prior to presentation. He had been admitted to [facility] for alcohol withdrawal. States that he was sober for 2 days and then started drinking vodka once more. States that he drinks at least 12 shots of vodka a day if not more. Yesterday evening after a couple of shots of vodka he went to give himself Mounjaro however made a mistake and gave himself Lantus. States that the Lantus pen was approximately three quarters full. He presented to the ER and was found to be hypoglycemic. He has been started on a D10 drip with persistent hypoglycemia. He was given several amps of D50 in the ER along with multiple glasses of orange juice. He was given glucagon however remains intermittently hypoglycemic. He is awake alert and oriented as well as conversant. 05/27-no acute overnight events. Patient continues to have intermittent episodes of hypoglycemia requiring pushes of D50. he is also encouraged to increase p.o. intake. Continues on D 25 100 cc an hour Critical Care Note Critical care time (min.): 40 Exam Vital Signs Temp Pulse Resp BP Pulse Ox O2 Del Method 97.3 F 108 H 14 92/58 L 99 Mechanical Ventilation 05/27/24 12:00 05/27/24 14:30 05/27/24 14:30 05/27/24 14:30 05/27/24 14:30 05/27/24 12:00 Narrative Exam General-no acute distress, awake alert and oriented, cooperative with exam, normal body habitus HEENT-normocephalic, atraumatic, sclera icteric, oral mucosa is hydrated, adequate dentition Chest-lungs clear to auscultation bilaterally, heart regular rhythmic, no bruits murmurs auscultated times exam, no tenderness on palpation of chest wall Abdomen-soft, nontender, sounds present, no rebound or guarding Extremities-pulses palpable, no clubbing or cyanosis, no mottling, moves all 4 Drips D25 at 100 cc an hour Physical Exam Completion Physical Exam Complete?: Yes 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 05/27/24 04:30 05/27/24 04:30 Labs: Laboratory Results - last 24 hr 05/27/24 04:30 WBC 8.5 RBC 3.75 L Hgb 11.3 L Hct 33.1 L MCV 88 MCH 30.1 MCHC 34.1 RDW Std Deviation 56.7 H Plt Count 344 Neut % (Auto) 67 Lymph % (Auto) 18 [place] % (Auto) 10 Eos % (Auto) 1 Baso % (Auto) 1 Neut # (Auto) 5.7 Lymph # (Auto) 1.6 [place] # (Auto) 0.8 Eos # (Auto) 0.1 Baso # (Auto) 0.1 Immature Gran # (Auto) 0.26 H Absolute Nucleated RBC 0.02 H Immature Gran % 3 H Nucleated RBC % 0 PT 10.0 INR 0.9 APTT 25.0 Sodium 130 L Potassium 3.3 L D Chloride 96 L Carbon Dioxide 23.3 Anion Gap 11 BUN 6 L Creatinine 0.8 Estim Creat Clear Calc 119.0 eGFR > 60 BUN/Creatinine Ratio 8 L Glucose 108 H Calculated Osmolality 259 L Calcium 8.9 Corrected Calcium 9.8 Phosphorus 3.0 Magnesium 1.4 L Total Bilirubin 2.3 H AST 294 H ALT 343 H Alkaline Phosphatase 412 H Total Protein 5.3 L Albumin 2.9 L Globulin 2.4 Albumin/Globulin Ratio 1.2 TSH 2.08 Assessment & Plan Additional Plan Additional Plan: In summary this is a 49-year-old male admitted to the ICU for persistent hypoglycemia after 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 He has been started on phenobarbital with as needed Ativan and CIWA protocol. Will be started on Precedex as needed and will consider Librium p.o. He has received thiamine, folate and Multivite. He has been educated as to his alcohol disease and consumption. CV Hypertension-patient is severely hypertensive likely exacerbated by his withdrawal. Have resumed home meds -Today's numbers doing well ? h/o ETOH cardiomyopathy- echo pending Resp Stable Renal Hyponatremia-patient has had a drop in his sodium from 1 38-1 30. He has also been on 100 cc an hour of D10. Salt tablets were started yesterday after discussing with pharmacy. Sodium remains 130 this morning. Hypokalemia-replete p.o. Hypomagnesemia-2 g IV GI Alcoholic [id number] on repeat labs, will eval need for steroids -Numbers are currently trending down and improving -Will need to follow with GI as an outpatient Endo Diabetes-patient is on multiple medications for his diabetes. He accidentally gave himself an overdose of Lantus and is thus persistently hypoglycemic today. His D10 is switched out to be 25 drip. He has been given juice, fruit and ice cream to consume for his hypoglycemia. Will continue with every hour fingerstick checks -Continues to have persistent episodes of hypoglycemia. We are currently more than 24 hours out from when he administered the overdose of Lantus -Encourage p.o. intake Heme Anemia-no active bleed noted, minimal -Remained stable DVT proph- lovenox ID Stable case d/w ICU team labs, imaging, records reviewed ~40ccmin required for eval, exam, review , intervention , discussion and POC for this critically ill patient with accidental insulin overdose and persistent hypoglycemia at high risk for further and ongoing decompensation Provider Notation Provider Notation: Although this document has been carefully reviewed, there may still be some phonetic and other typographical errors. These errors are purely grammatical due to imperfections in the software program and should not be construed in any way to compromise the substance of the patient's medical care during this visit. Thank you for the opportunity and privilege in assisting you with this patient's care and management.
--- NOTE | 2024-05-27 17:24 | PC.SS ---
Update: Patient remains on room air. P.O. feedings, encouraged to increase intake. Patient on CIWA protocol. 1:[address]
[2024-05-27] MEDS: DEXTROSE 50% SYR 187.5 ML in DEXTROSE 10%-WATER 312.5 ML 125 ML IV (23:30)
[2024-05-28] VITALS (32 sets, daily range): BP systolic 79–127; BP diastolic 48–94; PULSE 99–114; RESP 6–99; TEMP 36.6–37.2; O2SAT 94–100; BMI 27.7; BMI 27.8
[2024-05-28] MEDS: DEXTROSE 50%-WATER INJ 50 ML SYRINGE IV ×3 (01:05→07:05)
[2024-05-28] MEDS: ACETAMINOPHEN 325 MG TABLET 650 MG PO ×2 (02:00→11:26)
[2024-05-28] MEDS: LORazepam 2 MG/ML VIAL 0.5 MG IVP ×2 (03:09→11:29)
[2024-05-28] MEDS: DEXTROSE 50% SYR 187.5 ML in DEXTROSE 10%-WATER 312.5 ML 125 ML IV (03:20)
[2024-05-28 05:58] LABS: Basophils # (Auto) 0.1 Thou/mm3 (0.0-0.2); Basophils % (Auto) 1 % (0-2.5); Eosinophils # (Auto) 0.1 Thou/mm3 (0.0-0.5); Eosinophils % (Auto) 2 % (0-10); Hematocrit 28.2 % (41.0-53.0); Hemoglobin 9.7 g/dL (13.5-16.0); Immature Granulocytes % (Auto) 5 % (0-0); Immature Granulocytes Auto 0.36 Thou/mm3 (0.00-0.00); Lymphocytes # (Auto) 1.8 Thou/mm3 (1.0-4.8); Lymphocytes % (Auto) 25 % (10-50); Mean Corpuscular HGB Conc 34.4 g/dl (31.0-37.0); Mean Corpuscular Hemoglobin 30.2 pg (25.0-35.0); Mean Corpuscular Volume 88 fL (80-100); Monocytes # (Auto) 0.7 Thou/mm3 (0.0-0.8); Monocytes % (Auto) 9 % (0-12); Neutrophils % (Auto) 57 % (37-80); Nucleated Red Blood Cell # 0.02 Thou/mm3 (0.00-0.00); Nucleated Red Blood Cell % 0 /100 WBC (0); Platelet Count 297 Thou/mm3 (140-440); RDW Standard Deviation 55.8 fL (35.1-43.9); Red Blood Count 3.21 Miln/mm3 (4.50-5.90)
[2024-05-28 06:18] LABS: INR 0.9 (0.9-1.3)
[2024-05-28 06:22] LABS: Alanine Aminotransferase 271 U/L (10-49); Albumin, Serum 2.7 gm/dL (3.5-5.0); Albumin/Globulin Ratio 1.2 (1.2-2.2); Alkaline Phosphatase 356 U/L (46-116); Anion Gap 8 (7-16); Aspartate Amino Transferase 233 U/L (0-34); BUN/Creatinine Ratio 8 Ratio (12-20); Bilirubin,Total 2.2 mg/dL (0.3-1.2); Blood Urea Nitrogen 9 mg/dL (9-23); Calcium 8.6 mg/dL (8.3-10.6); Calcium (Corrected) 9.6 mg/dL (8.5-10.1); Carbon Dioxide 23.8 mMol/L (20.0-31.0); Chloride 95 mMol/L (98-107); Creatinine (Component) 1.1 mg/dL (0.6-1.3); Estimated Creatinine Clearance 86.5 mL/min (>60); Globulin 2.3 gm/dL (2.3-3.5); Glucose 60 mg/dL (74-106); Magnesium 1.8 mg/dL (1.6-2.6); Osmolality,Calculated 251 (275-295); Phosphorous 3.3 mg/dL (2.4-5.1); Sodium 127 mMol/L (136-145); eGFR > 60 See Note
[2024-05-28] MEDS: chlordiazePOXIDE HCl 25 MG CAPSULE PO ×2 (06:32→21:26)
[2024-05-28] MEDS: SODIUM CHLORIDE 1 GM TABLET PO (06:32)
[2024-05-28] MEDS: HEPARIN SOD INJ 5000 UNIT/ML VIAL SC ×3 (06:32→21:25)
[2024-05-28] MEDS: METOCLOPRAMIDE INJ 5 MG/ML VIAL 2 ML IVP ×2 (06:45→21:34)
--- NOTE | 2024-05-28 07:41 | PC.NURSE ---
Notified Dr Dimas of following 2330 bedside blood glucose 62 orders received to increase fluids to 125ml/hr 0100 bedside blood glucose 49 orders received to give an amp of D50 recheck 119 0300 bedside blood glucose 62 orders received to give an amp of D50 recheck 153 0630 bedside blood glucose 66 orders received to give an amp of D50 report given to am Rn.
[2024-05-28] MEDS: THIAMINE 100 MG TABLET PO ×2 (08:19→21:26)
[2024-05-28] MEDS: PANTOPRAZOLE INJ 40 MG VIAL IVP (08:19)
[2024-05-28] MEDS: carVEDILOL 12.5 MG TABLET 25 MG PO ×2 (08:19→17:29)
[2024-05-28] MEDS: FOLIC ACID 1 MG TABLET PO ×2 (08:19→21:26)
[2024-05-28] MEDS: DEXTROSE 50% SYR 187.5 ML in DEXTROSE 10%-WATER 312.5 ML 150 ML IV ×3 (08:47→16:07)
--- NOTE | 2024-05-28 11:57 | ESPR_ITS ---
<Statement entered by Devan Olsen MD - 05/28/24 18:10> continues to be hypoglycemic overnight, will continue D25@150 ml/hr , encourage oral feeding.Discontinued HCTZ which may also be contributing for hyponatremia and Will follow H&H today later . He is downgraded to floors. I discussed with and supervised my co-resident involved in the care of this patient. I agree with the assessment and plan as documented above. Devan Olsen,PGY-3 Disclaimer: Despite multiple revisions, due to the dictation software being used, the document below may not be free of grammatical errors including phonetic/typographic errors. However, this does not deter from our commitment to providing health care in the patient's best interest in mind. Documentation for date of: 05/28/24 Subjective Subjective Interval history: Patient seen and examined at the bedside. Overnight, blood glucose low while on D10 running at 100 cc/h, rate was increased to 125 and D50 pushes given x 3. This morning, patient complains of nausea and had 2 episodes of vomiting, also endorses some abdominal pain. Initial blood glucose at 60, rate of 25 increased to 150 cc/h, repeat blood glucose at 117. Will continue to 25 with current rate and glucose checks every hour. Labs reviewed, hemoglobin dropped from 11.3-9.7, no active bleeding. Additionally, hyponatremia at 127, patient is on hydrochlorothiazide for hypertension, will hold. Continue salt tablets, increase to 2 g 3 times daily. Transaminitis improving. Librium at 25 3 times daily, will start to taper off to twice daily. Plan today is to optimize blood glucose level until consistently stable within normal limits. Exam Vital Signs Temp Pulse Resp BP Pulse Ox O2 Del Method 98.0 F 106 H 18 115/68 99 Room Air 05/28/24 08:00 05/28/24 11:00 05/28/24 11:00 05/28/24 11:00 05/28/24 11:05/28/24 08:00 Narrative Exam GENERAL: AAOX3 NEURO: [employer]ANT grossly intact, moves extremities x4 HEENT: Moist mucosa. Eyes open, symmetrical, & clear CARDIO: No chest pain on palpation. Heart RRR, no obvious murmurs PULM: No noted coughing/dyspnea. Lungs CTA B/L GI: Abdomen soft, nondistended, no pain on palpation. 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 SKIN/MSK/EXT: No wounds/rashes/edema/amputations, no pain on palpation. Pedal pulses present B/L Objective Labs 05/28/24 05:18 05/28/24 05:18 Labs: Laboratory Results - last 24 hr 05/28/24 05:18 WBC 7.0 RBC 3.21 L Hgb 9.7 L Hct 28.2 L MCV 88 MCH 30.2 MCHC 34.4 RDW Std Deviation 55.8 H Plt Count 297 D Neut % (Auto) 57 Lymph % (Auto) 25 [place] % (Auto) 9 Eos % (Auto) 2 Baso % (Auto) 1 Neut # (Auto) 4.0 Lymph # (Auto) 1.8 [place] # (Auto) 0.7 Eos # (Auto) 0.1 Baso # (Auto) 0.1 Immature Gran # (Auto) 0.36 H Absolute Nucleated RBC 0.02 H Immature Gran % 5 H Nucleated RBC % 0 PT 10.0 INR 0.9 Sodium 127 L Potassium 4.0 D Chloride 95 L Carbon Dioxide 23.8 Anion Gap 8 BUN 9 Creatinine 1.1 Estim Creat Clear Calc 86.5 eGFR > 60 BUN/Creatinine Ratio 8 L Glucose 60 L Calculated Osmolality 251 L Calcium 8.6 Corrected Calcium 9.6 Phosphorus 3.3 Magnesium 1.8 Total Bilirubin 2.2 H AST 233 H ALT 271 H Alkaline Phosphatase 356 H D Total Protein 5.0 L Albumin 2.7 L Globulin 2.3 Albumin/Globulin Ratio 1.2 Quality Measures Quality Measures none Assessment & Plan Assessment Current Active Medications: Generic Name Dose Route Start Last Admin Trade Name Freq PRN Reason Stop Dose Admin Acetaminophen 650 mg 05/26/24 00:14 05/28/24 11:26 Acetaminophen 325 Mg Tablet PO 06/25/24 00:13 650 mg Q6H PRN Administration Fever >101.5 Amlodipine Besylate 10 mg 05/26/24 11:30 05/28/24 08:13 Amlodipine Besylate 5 Mg Tablet PO 06/25/24 11:29 Not Given QDAY ROSELINE Carvedilol 25 mg 05/26/24 17:30 05/28/24 08:19 Carvedilol 12.5 Mg Tablet PO 06/25/24 17:29 25 mg BIDWM ROSELINE Administration Chlordiazepoxide HCl 25 mg 05/28/24 21:00 Chlordiazepoxide Hcl 25 Mg Capsule PO 06/02/24 20:59 BID ROSELINE Dextrose 25 ml 05/26/24 00:21 05/27/24 06:30 Dextrose 50%-Water Inj 50 Ml Syringe IV 06/25/24 00:20 25 ml Q15MIN PRN Administration BG 50-70 responsive npo pt Dextrose 50 ml 05/26/24 00:21 05/28/24 07:05 Dextrose 50%-Water Inj 50 Ml Syringe IV 06/25/24 00:20 50 ml Q15MIN PRN Administration BG <50 OR BG <70 & pt unresponsive Folic Acid 1 mg 05/26/24 09:00 05/28/24 08:19 Folic Acid 1 Mg Tablet PO 05/31/24 08:59 1 mg BID ROSELINE Administration Glucagon 1 mg 05/26/24 00:21 Glucagon Inj 1 Mg Vial IM Q15MIN PRN BG <70, and no IV access Heparin Sodium (Porcine) 5,000 unit 05/26/24 11:00 05/28/24 06:32 Heparin Sod Inj 5000 Unit/Ml Vial SC 06/09/24 10:59 5,000 unit Q8HR ROSELINE Administration Hydralazine HCl 10 mg 05/26/24 00:26 05/26/24 05:04 Hydralazine Inj 20 Mg/Ml Vial IV 06/25/24 00:29 10 mg Q2H PRN Administration SBP >180mmHg Dextrose 187.5 ml/ Dextrose 500 mls @ 150 mls/hr 05/28/24 08:31 05/28/24 08:47 IV 06/27/24 08:30 150 mls/hr .Q3H20M ROSELINE Administration Protocol Lisinopril 40 mg 05/26/24 15:00 05/28/24 08:14 Lisinopril 20 Mg Tablet PO 06/25/24 14:59 Not Given QDAY ROSELINE Lorazepam 0.5 mg 05/26/24 20:07 05/28/24 11:29 Lorazepam 2 Mg/Ml Vial IVP 05/31/24 20:06 0.5 mg Q3HR PRN Administration ANXIETY Metoclopramide HCl 5 mg 05/26/24 11:29 05/28/24 06:45 Metoclopramide Inj 5 Mg/Ml Vial 2 Ml IVP 06/25/24 11:59 5 mg Q6HR PRN Administration nausea Protocol Sodium Chloride 2 gm 05/28/24 14:00 Sodium Chloride 1 Gm Tablet PO 06/27/24 13:59 TID ROSELINE Thiamine HCl 100 mg 05/26/24 00:30 05/28/24 08:19 Thiamine 100 Mg Tablet PO 05/31/24 00:29 100 mg BID ROSELINE Administration Plan Summary: The patient is a 49-year-old male with past medical history of hypertension, gastroparesis, IBS, cirrhosis, biliary dyskinesia Deya Y and 2 diagnostic laparoscopies, diverticulosis, gallstone alcohol withdrawal. Came to the ED with chief complaint of injecting 1 whole pen of insulin glargine , he thought he was injecting Mounjaro and by mistake injected his insulin glargine. He was recently discharged from [facility] for alcohol withdrawal. 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 -thiamine and folic acid 05/28/2024- CIWA-2. Will start to taper off Librium to BID. Continue thiamine and folate. CVS #History of hypertension #Tachycardia He takes home Amlodipine, carvedilol 25, hydrochlorothiazide 12.5 ,lisinopril 40 Blood pressure currently soft, holding lisinopril and HCTZ. Patient received Coreg this morning and his heart rate was in the low 100s. Plan: -Hold antihypertensives for now -Okay to give Coreg if patient is persistently tachycardic RESP Stable GI #Cirrhosis #h/o gastroperesis #IBS #biliary dyskinesia #h/0 Deya Y #Transaminitis Enlarged common bile duct although no definite stones, Prominent pancreatic head CT scan from [facility] showed on 05/19/24 - marked hepatomegaly - protonix 40 Q day -most likely in the setting of alcoholic hepatitis -will follow am cogulation pannel -Transaminitis trending down -he needs out patient GI workup 05/28/2024: Transaminitis improving, patient will still require outpatient GI workup post discharge. ENDO #Hypoglycemia injected his insulin by mistake.(almost 250 U of lantus ) -Started the patient on D25 @100 ml -will give him juice , icecream , bananas -will do Q1 hr blood checks 05/28/2024- Overnight, blood glucose low while on D10 running at 100 cc/h, rate was increased to 125 and D50 pushes given x 3. This morning, patient complains of nausea and had 2 episodes of vomiting, also endorses some abdominal pain. Initial blood glucose at 60, rate of 25 increased to 150 cc/h, repeat blood glucose at 117. Will continue to 25 with current rate and glucose checks every hour. Plan: -Continue D25 at 150 cc/h -Blood glucose check every hour #History of type 2 diabetes mellitus -Patient takes 15 units of glargine twice daily at home and [place] Presented after accidental overdose with glargine. Currently holding insulin. HEME # Normocytic anemia -On admission his hemoglobin was 11.6 -Most likely secondary to chronic alcohol use -Transfuse hb < 7 05/28/2024: Hemoglobin dropped from 11.3-9.7 today. No signs of active bleeding. Plan: -Repeat H&H in about 2 hours RENAL #Hyposmolar hyponatremia #Hypochloremia -his sodium on admission was 131 , -most likely secondary to alcohol use and underlying liver disease with the fluids that we gave . (D10, d25 ) -started on sodium tablets 1gm tid -will follow morning labs 05/28/2024: Sodium this morning at 127, hydrochlorothiazide held. Will continue labs, increase to 2 g 3 times daily. #Hypomagnesemia-resolved likely secondary to alcohol use -monitor and replete PRN ID - Stable Disposition:ICU for hypoglycemia Diet and fluids:currently normal, once hypoglycemia resolved then diabetic DVT prophylaxis:heparin GI prophylaxis:protonix CODE STATUS:full code Case was discussed with Dr Olsen PGY-3 and attending physician, Dr Clement Burch MD PGY-1 Disclaimer: This note was dictated by speech recognition. Minor errors in pastor may be present due to voice recognition software.
[2024-05-28] MEDS: SODIUM CHLORIDE 1 GM TABLET 2 GM PO ×2 (13:46→21:25)
[2024-05-28 13:58] LABS: Hematocrit 28.8 % (41.0-53.0); Hemoglobin 9.9 g/dL (13.5-16.0)
--- NOTE | 2024-05-28 15:03 | ESPR_ITS ---
Documentation for date of: 05/28/24 Subjective Subjective Interval history: This is a 49-year-old male who presents to the ER for accidental insulin overdose. He was recently discharged from [facility] [address] 5 days prior to presentation. He had been admitted to [facility] for alcohol withdrawal. States that he was sober for 2 days and then started drinking vodka once more. States that he drinks at least 12 shots of vodka a day if not more. Yesterday evening after a couple of shots of vodka he went to give himself Mounjaro however made a mistake and gave himself Lantus. States that the Lantus pen was approximately three quarters full. He presented to the ER and was found to be hypoglycemic. He has been started on a D10 drip with persistent hypoglycemia. He was given several amps of D50 in the ER along with multiple glasses of orange juice. He was given glucagon however remains intermittently hypoglycemic. He is awake alert and oriented as well as conversant. 05/27-no acute overnight events. Patient continues to have intermittent episodes of hypoglycemia requiring pushes of D50. he is also encouraged to increase p.o. intake. Continues on D 25 05/28- overnight several episodes of hypoglycemia requiring pushes of D50 otherwise he has no complaints today Critical Care Note Critical care time (min.): 36 Exam Vital Signs Temp Pulse Resp BP Pulse Ox O2 Del Method 98.0 F 106 H 18 115/68 99 Room Air 05/28/24 08:00 05/28/24 11:00 05/28/24 11:00 05/28/24 11:00 05/28/24 11:00 05/28/24 08:00 Narrative Exam Gen- NAD, AAOx3, nl body habitus HEENT- NC/AT, mucosa hydrated, sclera anicteric, EOMI Chest- LCTAB, HRRR, no increase in WOB Abd- s/nt/bs+ Ext- no edema, pulses palp, no clubbing, no mottling, moves all 4 Drips D25 @150cc/hr Physical Exam Completion Physical Exam Complete?: Yes Objective - Roof Slater Labs 05/28/24 13:48 05/28/24 05:18 Labs: Laboratory Results - last 24 hr 05/28/24 05/28/24 05:18 13:48 WBC 7.0 RBC 3.21 L Hgb 9.7 L 9.9 L Hct 28.2 L 28.8 L MCV 88 MCH 30.2 MCHC 34.4 RDW Std Deviation 55.8 H Plt Count 297 D Neut % (Auto) 57 Lymph % (Auto) 25 [place] % (Auto) 9 Eos % (Auto) 2 Baso % (Auto) 1 Neut # (Auto) 4.0 Lymph # (Auto) 1.8 [place] # (Auto) 0.7 Eos # (Auto) 0.1 Baso # (Auto) 0.1 Immature Gran # (Auto) 0.36 H Absolute Nucleated RBC 0.02 H Immature Gran % 5 H Nucleated RBC % 0 PT 10.0 INR 0.9 Sodium 127 L Potassium 4.0 D Chloride 95 L Carbon Dioxide 23.8 Anion Gap 8 BUN 9 Creatinine 1.1 Estim Creat Clear Calc 86.5 eGFR > 60 BUN/Creatinine Ratio 8 L Glucose 60 L Calculated Osmolality 251 L Calcium 8.6 Corrected Calcium 9.6 Phosphorus 3.3 Magnesium 1.8 Total Bilirubin 2.2 H AST 233 H ALT 271 H Alkaline Phosphatase 356 H D Total Protein 5.0 L Albumin 2.7 L Globulin 2.3 Albumin/Globulin Ratio 1.2 Assessment & Plan Additional Plan Additional Plan: In summary this is a 49-year-old male admitted to the ICU for persistent hypoglycemia after accidental 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 He has been started on phenobarbital with as needed Ativan and CIWA protocol. Will be started on Precedex as needed and will consider Librium p.o. He has received thiamine, folate and Multivite. He has been educated as to his alcohol disease and consumption. - currently improving and will ween librium down CV Hypertension-patient is severely hypertensive likely exacerbated by his withdrawal. Have resumed home meds -Today's numbers doing well - will stop HCTZ given his HypoNa ? h/o ETOH cardiomyopathy- echo pending Resp Stable Renal Hyponatremia-patient has had a drop in his sodium from 1 38-1 30. Salt tablets were started yesterday after discussing with pharmacy. Sodium remains 130 this morning. - increased D25 to 150cc today -> increased NaCl tabs to 2g TID Hypokalemia- resolved Hypomagnesemia- improved GI Alcoholic [id number] on repeat labs, will eval need for steroids -Numbers are currently trending down and improving -Will need to follow with GI as an outpatient - cont to improve Endo Diabetes-patient is on multiple medications for his diabetes. He accidentally gave himself an overdose of Lantus and is thus persistently hypoglycemic today. D25 at 150cc/hr He has been given juice, fruit and ice cream to consume for his hypoglycemia. Will continue with every hour fingerstick checks -Continues to have persistent episodes of hypoglycemia. We are currently more than 48 hours out from when he administered the overdose of Lantus -Encourage p.o. intake - cont to need q1hr FS given his repeated episodes of hypoglycemia Heme Anemia-no active bleed noted, minimal -Remained stable - some drop, ? dilutional, no evidence of active bleeding DVT proph- lovenox ID Stable case d/w ICU team labs, imaging, records reviewed ~36ccmin required for eval, exam, review , intervention , discussion and POC for this critically ill patient with accidental insulin overdose and persistent hypoglycemia at high risk for further and ongoing decompensation Provider Notation Provider Notation: Although this document has been carefully reviewed, there may still be some phonetic and other typographical errors. These errors are purely grammatical due to imperfections in the software program and should not be construed in any way to compromise the substance of the patient's medical care during this visit. Thank you for the opportunity and privilege in assisting you with this patient's care and management.
--- NOTE | 2024-05-28 17:37 | PD.RESPRO ---
Documentation for date of: 05/28/24 Subjective Subjective Interval history: Received ICU downgrade for Team B to assume care starting this evening. Patient will then be assumed on Team C with Dr. Canseco starting 7:00 am 05/29/2024. Briefly, this is a 49-year-old male with past medical history of insulin-dependent type 2 diabetes, hypertension, eh-en-Y gastric bypass, alcohol use disorder, alcohol-related liver cirrhosis, gastroparesis, IBS, gallstones, biliary dyskinesia, and diverticulosis who presented to the ED on 05/25/2024 with hypoglycemia secondary to excessive accidental insulin administration. Patient stated he was drunk and thought he was injecting his Mounjaro. Patient was recently discharged from [facility], [place] for alcohol withdrawal and relapsed on alcohol 3 days prior to this admission. On presentation patient had BG of 33 and was diaphoretic but with a GCS of 15. Hypoglycemia was refractory to continuous glucose infusion, multiple pushes of D50, and glucagon administration, therefore patient was admitted to the ICU for frequent glucose checks and monitoring. Currently the patient is 72-hours post presentation and maintained BG >100s while on D25W continuous infusion at 150 ml/hr today. ICU determined patient was stable for downgrade. Patient was assessed at the bedside in ICU. He was awake, alert, feeling well with no complaints. CIWA score is 0. Patient is on Librium 25 mg BID scheduled. Added PO lorazepam prn CIWA protocol in case of later withdrawal. D25W was reduced to rate of 75 ml/hr. ICU team started patient on salt tabs 2 gm TID for hyponatremia secondary to the dextrose-water infusions. Will continue to downtitrate D25 infusion and turn off likely tomorrow if BG maintains. Exam Vital Signs Temp Pulse Resp BP Pulse Ox O2 Del Method 98.0 F 111 H 18 124/82 99 Room Air 05/28/24 08:00 05/28/24 17:29 05/28/24 11:00 05/28/24 17:29 05/28/24 11:00 05/28/24 08:00 Narrative Exam Physical Exam General: Awake and in no acute distress. Conversational and non-toxic appearing. HEENT: Normocephalic, atraumatic, mucous membranes moist. Heart: Regular rate and rhythm, no murmurs. Lungs: Clear to auscultation with no wheezing or crackles. Abdomen: Soft, obese, nondistended, nontender, positive bowel sounds. ?No guarding or rebound tenderness. Neurologic: Alert and oriented x3, no gross neurological deficit, and patient able to move all 4 extremities. Extremities: No edema. Skin: No rash or ecchymoses. Objective Labs 05/29/24 04:32 05/29/24 04:32 Labs: Laboratory Results - last 24 hr 05/28/24 05/28/24 05:18 13:48 WBC 7.0 RBC 3.21 L Hgb 9.7 L 9.9 L Hct 28.2 L 28.8 L MCV 88 MCH 30.2 MCHC 34.4 RDW Std Deviation 55.8 H Plt Count 297 D Neut % (Auto) 57 Lymph % (Auto) 25 [place] % (Auto) 9 Eos % (Auto) 2 Baso % (Auto) 1 Neut # (Auto) 4.0 Lymph # (Auto) 1.8 Hardin # (Auto) 0.7 Eos # (Auto) 0.1 Baso # (Auto) 0.1 Immature Gran # (Auto) 0.36 H Absolute Nucleated RBC 0.02 H Immature Gran % 5 H Nucleated RBC % 0 PT 10.0 INR 0.9 Sodium 127 L Potassium 4.0 D Chloride 95 L Carbon Dioxide 23.8 Anion Gap 8 BUN 9 Creatinine 1.1 Estim Creat Clear Calc 86.5 eGFR > 60 BUN/Creatinine Ratio 8 L Glucose 60 L Calculated Osmolality 251 L Calcium 8.6 Corrected Calcium 9.6 Phosphorus 3.3 Magnesium 1.8 Total Bilirubin 2.2 H AST 233 H ALT 271 H Alkaline Phosphatase 356 H D Total Protein 5.0 L Albumin 2.7 L Globulin 2.3 Albumin/Globulin Ratio 1.2 Quality Measures Quality Measures none Assessment & Plan Assessment Current Active Medications: Generic Name Dose Route Start Last Admin Trade Name Freq PRN Reason Stop Dose Admin Acetaminophen 650 mg 05/26/24 00:14 05/28/24 11:26 Acetaminophen 325 Mg Tablet PO 06/25/24 00:13 650 mg Q6H PRN Administration Fever >101.5 Amlodipine Besylate 10 mg 05/26/24 11:30 05/28/24 08:13 Amlodipine Besylate 5 Mg Tablet PO 06/25/24 11:29 Not Given QDAY ROSELINE Carvedilol 25 mg 05/26/24 17:30 05/28/24 17:29 Carvedilol 12.5 Mg Tablet PO 06/25/24 17:29 25 mg BIDWM ROSELINE Administration Chlordiazepoxide HCl 25 mg 05/28/24 21:00 Chlordiazepoxide Hcl 25 Mg Capsule PO 06/02/24 20:59 BID ROSELINE Dextrose 25 ml 05/26/24 00:21 05/27/24 06:30 Dextrose 50%-Water Inj 50 Ml Syringe IV 06/25/24 00:20 25 ml Q15MIN PRN Administration BG 50-70 responsive npo pt Dextrose 50 ml 05/26/24 00:21 05/28/24 07:05 Dextrose 50%-Water Inj 50 Ml Syringe IV 06/25/24 00:20 50 ml Q15MIN PRN Administration BG <50 OR BG <70 & pt unresponsive Folic Acid 1 mg 05/26/24 09:00 05/28/24 08:19 Folic Acid 1 Mg Tablet PO 05/31/24 08:59 1 mg BID ROSELINE Administration Glucagon 1 mg 05/26/24 00:21 Glucagon Inj 1 Mg Vial IM Q15MIN PRN BG <70, and no IV access Heparin Sodium (Porcine) 5,000 unit 05/26/24 11:00 05/28/24 13:46 Heparin Sod Inj 5000 Unit/Ml Vial SC 06/09/24 10:59 5,000 unit Q8HR ROSELIEN Administration Hydralazine HCl 10 mg 05/26/24 00:26 05/26/24 05:04 Hydralazine Inj 20 Mg/Ml Vial IV 06/25/24 00:29 10 mg Q2H PRN Administration SBP >180mmHg Dextrose 187.5 ml/ Dextrose 500 mls @ 150 mls/hr 05/28/24 08:31 05/28/24 16:07 IV 06/27/24 08:30 150 mls/hr .Q3H20M ROSELINE Administration Protocol Lisinopril 40 mg 05/26/24 15:00 05/28/24 08:14 Lisinopril 20 Mg Tablet PO 06/25/24 14:59 Not Given QDAY ROSELINE Lorazepam 0.5 mg 05/26/24 20:07 05/28/24 11:29 Lorazepam 2 Mg/Ml Vial IVP 05/31/24 20:06 0.5 mg Q3HR PRN Administration ANXIETY Metoclopramide HCl 5 mg 05/26/24 11:29 05/28/24 06:45 Metoclopramide Inj 5 Mg/Ml Vial 2 Ml IVP 06/25/24 11:59 5 mg Q6HR PRN Administration nausea Protocol Sodium Chloride 2 gm 05/28/24 14:00 05/28/24 13:46 Sodium Chloride 1 Gm Tablet PO 06/27/24 13:59 2 gm TID ROSELINE Administration Thiamine HCl 100 mg 05/26/24 00:30 05/28/24 08:19 Thiamine 100 Mg Tablet PO 05/31/24 00:29 100 mg BID ROSELINE Administration Plan 49-year-old male with past medical history of insulin-dependent type 2 diabetes, hypertension, eh-en-Y gastric bypass, alcohol use disorder, alcohol-related liver cirrhosis, gastroparesis, IBS, gallstones, biliary dyskinesia, and diverticulosis who presented to the ED on 05/25/2024 with hypoglycemia secondary to excessive accidental insulin administration. He was admitted to ICU due to persistent hypoglycemia, subsequently downgraded to Telemetry on 05/28/2024. #Moderate hypoglycemia, level 2 - resolved Secondary to accidental insulin administration. Patient states he was drunk at the time and thought he was injecting his Mounjaro. Denied any self-harm or suicide attempt. -Reduced D25W from 150 to 75 ml/hr -Taper off fluids, most likely discontinue tomorrow if BG maintains >100 -Bedside BG checks q4h #Alcohol abuse disorder #History of alcohol withdrawal Patient drinks up to 12 shots of vodka daily. He admitted to relapse following admission at [facility] for alcohol withdrawal in the past week. CIWA today is 0. -CIWA protocol with prn PO lorazepam -Continue scheduled Librium 25 mg TID -Continue thiamine 100 mg BID and folic acid 1 mg BID -Counseling on alcohol cessation #History of hypertension #Sinus tachycardia Patient takes home amlodipine 10 mg qday, carvedilol 25 mg qday, hydrochlorothiazide 12.5 mg qday, lisinopril 40 mg qday. -Continue home carvedilol 25 mg BID -Holding lisinopril, hydrochlorothiazide, and amlodipine due to soft BP #Alcohol-related liver cirrhosis #Elevated LFTs - downtrending #Elevated total bilirubin #History of gastroparesis #History of IBS #History of biliary dyskinesia #History of eh-en-Y gastric bypass On admission LFTs were elevated with AST 804, ALT 521, have since downtrended. Total bilirubin stable around 2.0. Liver US from 05/25/2024 showed enlarged common bile duct although no definite stones, prominent pancreatic head. CT abdomen from [facility] [place] on 05/19/2024 apparently showed marked hepatomegaly. Maddrey score is -7 MELD-Na score is 20 -LFT elevation most likely in the setting of alcoholic hepatitis, currently no indication for steroid treatment according to the Maddrey score -Recommend outpatient GI follow up #History of type 2 diabetes mellitus Patient takes 15 units of glargine twice daily at home and Mounjaro. Presented after accidental overdose with glargine. -Continue to hold insulin -Consulted curing room worker -Ordered A1c #Normocytic anemia On admission his hemoglobin was 11.6. Most likely secondary to chronic alcohol use. Patient hemoglobins stable, does not require transfusion at the moment, PT, INR, PTT within normal range. 05/28/2024: Hemoglobin dropped from 11.3-9.7 today. Most likely dilutional secondary to extensive fluids. No signs of active bleeding. -Transfuse for Hgb<7 #Hyposmolar hyponatremia #Hypochloremia Sodium on admission was 131. Most likely secondary to alcohol use and underlying liver disease as well as dextrose-water infusions. -Continue sodium tablets 2 gm TID, taper according to sodium levels -Monitor CMP #Hypomagnesemia - resolved Disposition: Downgrade to Telemetry Diet and fluids: Regular diet, once hypoglycemia resolved then change to carb consistent low DVT prophylaxis: Heparin subQ GI prophylaxis: Not indicated CODE STATUS: Full Code Patient plan of care was discussed with the attending physician, Dr. Bear. Mesha Kaplan, PGY-2 Attending Provider Attestation/Addendum Marjorie Weems, DO, attest that I was physically present for the [place] portions of the service and evaluated the patient with the resident and I reviewed and discussed the case with the resident and agree with the resident's findings and plans of care as documented above Patient is a 49-year-old male with past medical history of type II IDDM, hypertension, gastric bypass, chronic alcohol use, cirrhosis, gastroparesis, biliary dyskinesia and diverticulosis who was brought to the ED after patient experienced hypoglycemia after accidentally injecting too much insulin. Patient states that he had drunken 12 shots of vodka after he was recently discharged from [facility] for alcohol withdrawals. Patient had thought that he was injecting himself with Mounjaro, but had mistakenly used Lantus. Patient has been requiring D25 due to refractory hypoglycemia. He has since been tolerating diet and states that he is feeling well. Patient does not have any tremors, visual/auditory/tactile hallucinations. Patient remains 9025 and blood sugars have been stable since. Will reduce the rate of D25 water. Salt tabs have been started due to hyponatremia as well. Patient has been downgraded from the ICU and will resume care under hospitalist service. Patient can likely be discharged in the next 24 to 48 hours if blood sugars remain stable off D25 drip.
[2024-05-28] MEDS: DEXTROSE 50% SYR 187.5 ML in DEXTROSE 10%-WATER 312.5 ML 75 ML IV (19:45)
[2024-05-29] VITALS (20 sets, daily range): BP systolic 95–155; BP diastolic 53–95; PULSE 101–121; RESP 0–98; TEMP 36.3–36.8; O2SAT 89–100; BMI 28.2
[2024-05-29] MEDS: LORazepam 0.5 MG TABLET PO ×3 (02:07→21:26)
[2024-05-29] MEDS: DEXTROSE 50% SYR 187.5 ML in DEXTROSE 10%-WATER 312.5 ML 75 ML IV (02:43)
[2024-05-29] MEDS: SODIUM CHLORIDE 1 GM TABLET 2 GM PO ×3 (05:15→21:25)
[2024-05-29] MEDS: HEPARIN SOD INJ 5000 UNIT/ML VIAL SC ×3 (05:16→21:25)
[2024-05-29 05:23] LABS: Basophils # (Auto) 0.1 Thou/mm3 (0.0-0.2); Basophils % (Auto) 1 % (0-2.5); Eosinophils # (Auto) 0.2 Thou/mm3 (0.0-0.5); Eosinophils % (Auto) 4 % (0-10); Hematocrit 27.8 % (41.0-53.0); Hemoglobin 9.4 g/dL (13.5-16.0); Immature Granulocytes % (Auto) 6 % (0-0); Immature Granulocytes Auto 0.33 Thou/mm3 (0.00-0.00); Lymphocytes # (Auto) 1.4 Thou/mm3 (1.0-4.8); Lymphocytes % (Auto) 24 % (10-50); Mean Corpuscular HGB Conc 33.8 g/dl (31.0-37.0); Mean Corpuscular Hemoglobin 30.7 pg (25.0-35.0); Mean Corpuscular Volume 91 fL (80-100); Monocytes # (Auto) 0.5 Thou/mm3 (0.0-0.8); Monocytes % (Auto) 9 % (0-12); Neutrophils # (Auto) 3.3 Thou/mm3 (1.8-7.7); Neutrophils % (Auto) 57 % (37-80); Nucleated Red Blood Cell % 0 /100 WBC (0); Platelet Count 295 Thou/mm3 (140-440); RDW Standard Deviation 60.2 fL (35.1-43.9); Red Blood Count 3.06 Miln/mm3 (4.50-5.90); White Blood Count 5.8 Thou/mm3 (3.8-10.6)
[2024-05-29] MEDS: METOCLOPRAMIDE INJ 5 MG/ML VIAL 2 ML IVP ×2 (05:24→16:17)
[2024-05-29 05:37] LABS: INR 0.9 (0.9-1.3); Prothrombin Time 10.4 Seconds (9.0-12.2)
[2024-05-29 05:56] LABS: Glucose Estimated Average 117 mg/dL (80-131); Hemoglobin A1C 5.7 % Hgb (4.8-6.0)
[2024-05-29 06:03] LABS: Alanine Aminotransferase 259 U/L (10-49); Albumin, Serum 2.8 gm/dL (3.5-5.0); Albumin/Globulin Ratio 1.2 (1.2-2.2); Alkaline Phosphatase 376 U/L (46-116); Anion Gap 7 (7-16); Aspartate Amino Transferase 212 U/L (0-34); BUN/Creatinine Ratio 12 Ratio (12-20); Bilirubin,Total 1.9 mg/dL (0.3-1.2); Blood Urea Nitrogen 12 mg/dL (9-23); Calcium 8.4 mg/dL (8.3-10.6); Calcium (Corrected) 9.4 mg/dL (8.5-10.1); Chloride 100 mMol/L (98-107); Estimated Creatinine Clearance 101.6 mL/min (>60); Globulin 2.4 gm/dL (2.3-3.5); Glucose 123 mg/dL (74-106); Magnesium 1.8 mg/dL (1.6-2.6); Osmolality,Calculated 265 (275-295); Phosphorous 4.6 mg/dL (2.4-5.1); Potassium 4.4 mMol/L (3.4-5.1); Sodium 132 mMol/L (136-145); Total Protein 5.2 gm/dL (5.7-8.2); eGFR > 60 See Note
[2024-05-29] MEDS: carVEDILOL 12.5 MG TABLET 25 MG PO ×2 (08:17→18:17)
[2024-05-29] MEDS: THIAMINE 100 MG TABLET PO ×2 (08:18→21:26)
[2024-05-29] MEDS: chlordiazePOXIDE HCl 25 MG CAPSULE PO (08:18)
[2024-05-29] MEDS: FOLIC ACID 1 MG TABLET PO ×2 (08:19→21:26)
[2024-05-29] MEDS: DEXTROSE 50% SYR 187.5 ML in DEXTROSE 10%-WATER 312.5 ML 50 ML IV (10:15)
--- NOTE | 2024-05-29 14:51 | PC.SS ---
Rounding Note: Patient has been downgraded from ICU. Possible d/c in 1 more day.
--- NOTE | 2024-05-29 15:05 | ESPR_ITS ---
<Statement entered by Ese Negron MD - 05/29/24 17:11> I discussed with and supervised the direct marketing intern physician who took care of this patient. I personally saw and examined the patient and discussed the assessment and plan with the entire medicine team, including my attending Dr. Canseoc, I agree with most of the assessment and plan as documented below Ese Negron M.D. PGY-2 Documentation for date of: 05/29/24 Subjective Subjective Interval history: No overnight events. Patient seen examined at bedside, resting comfortably. Patient endorses good appetite, denies nausea, vomiting, dizziness, fatigue, weakness, chest pain, shortness of breath, nausea, vomiting. D25W turned off, follow-up blood glucose level stable. Will continue to monitor closely, possible DC tomorrow. Exam Vital Signs Temp Pulse Resp BP Pulse Ox O2 Del Method 97.3 F 107 H 21 H 131/87 H 100 Room Air 05/29/24 12:01 05/29/24 12:01 05/29/24 12:01 05/29/24 12:01 05/29/24 12:01 05/29/24 12:01 Narrative Exam PE: Gen: Well-developed and well-nourished. HEENT: NCAT, PERRLA, EOMI, MMM, anicteric conjunctivae. CVS: normal S1 and S2. RRR. No M/R/G. Resp: CTA B/L. No rhonchi, rales, crackles or wheezing. Abd: soft, non-tender, non-distended. MSK: Good ROM in BUE & BLE. No edema or rash. Neuro: CN II-XII grossly intact. Strength 5/5 in BUE & BLE. Alert and oriented x3. Psych: appropriate mood and affect. Objective Labs 05/29/24 04:32 05/29/24 04:32 Labs: Laboratory Results - last 24 hr 05/29/24 04:32 WBC 5.8 RBC 3.06 L Hgb 9.4 L Hct 27.8 L MCV 91 MCH 30.7 MCHC 33.8 RDW Std Deviation 60.2 H Plt Count 295 Neut % (Auto) 57 Lymph % (Auto) 24 [place] % (Auto) 9 Eos % (Auto) 4 Baso % (Auto) 1 Neut # (Auto) 3.3 Lymph # (Auto) 1.4 [place] # (Auto) 0.5 Eos # (Auto) 0.2 Baso # (Auto) 0.1 Immature Gran # (Auto) 0.33 H Absolute Nucleated RBC 0.00 Immature Gran % 6 H Nucleated RBC % 0 PT 10.4 INR 0.9 Sodium 132 L Potassium 4.4 Chloride 100 Carbon Dioxide 25.0 Anion Gap 7 BUN 12 Creatinine 1.0 Estim Creat Clear Calc 101.6 eGFR > 60 BUN/Creatinine Ratio [address] Glu mg/dL 117 Hemoglobin A1c 5.7 Calculated Osmolality 265 L Calcium 8.4 Corrected Calcium 9.4 Phosphorus 4.6 Magnesium 1.8 Total Bilirubin 1.9 H AST 212 H ALT 259 H Alkaline Phosphatase 376 H D Total Protein 5.2 L Albumin 2.8 L Globulin 2.4 Albumin/Globulin Ratio 1.2 Quality Measures Quality Measures VTE prophylaxis and none Assessment & Plan Assessment Current Active Medications: Generic Name Dose Route Start Last Admin Trade Name Freq PRN Reason Stop Dose Admin Acetaminophen 650 mg 05/26/24 00:14 05/28/24 11:26 Acetaminophen 325 Mg Tablet PO 06/25/24 00:13 650 mg Q6H PRN Administration Fever >101.5 Carvedilol 25 mg 05/26/24 17:30 05/29/24 08:17 Carvedilol 12.5 Mg Tablet PO 06/25/24 17:29 25 mg BIDWM ROSELINE Administration Dextrose 25 ml 05/26/24 00:21 05/27/24 06:30 Dextrose 50%-Water Inj 50 Ml Syringe IV 06/25/24 00:20 25 ml Q15MIN PRN Administration BG 50-70 responsive npo pt Dextrose 50 ml 05/26/24 00:21 05/28/24 07:05 Dextrose 50%-Water Inj 50 Ml Syringe IV 06/25/24 00:20 50 ml Q15MIN PRN Administration BG <50 OR BG <70 & pt unresponsive Folic Acid 1 mg 05/26/24 09:00 05/29/24 08:19 Folic Acid 1 Mg Tablet PO 05/31/24 08:59 1 mg BID ROSELINE Administration Glucagon 1 mg 05/26/24 00:21 Glucagon Inj 1 Mg Vial IM Q15MIN PRN BG <70, and no IV access Heparin Sodium (Porcine) 5,000 unit 05/26/24 11:00 05/29/24 13:58 Heparin Sod Inj 5000 Unit/Ml Vial SC 06/09/24 10:59 5,000 unit Q8HR ROSELINE Administration Hydralazine HCl 10 mg 05/26/24 00:26 05/26/24 05:04 Hydralazine Inj 20 Mg/Ml Vial IV 06/25/24 00:29 10 mg Q2H PRN Administration SBP >180mmHg Lorazepam 0.5 mg 05/28/24 18:30 05/29/24 08:23 Lorazepam 0.5 Mg Tablet PO 06/02/24 18:29 0.5 mg Q4HR PRN Administration CIWA Score 2-6 Lorazepam 1 mg 05/28/24 18:30 Lorazepam 0.5 Mg Tablet PO 06/02/24 18:29 Q4HR PRN CIWA SCORE 7-11 Lorazepam 2 mg 05/28/24 18:30 Lorazepam 0.5 Mg Tablet PO 06/02/24 18:29 Q4HR PRN CIWA SCORE 12-15 Metoclopramide HCl 5 mg 05/26/24 11:29 05/29/24 05:24 Metoclopramide Inj 5 Mg/Ml Vial 2 Ml IVP 06/25/24 11:59 5 mg Q6HR PRN Administration nausea Protocol Sodium Chloride 2 gm 05/28/24 14:00 05/29/24 13:58 Sodium Chloride 1 Gm Tablet PO 06/27/24 13:59 2 gm TID ROSELINE Administration Thiamine HCl 100 mg 05/26/24 00:30 05/29/24 08:18 Thiamine 100 Mg Tablet PO 05/31/24 00:29 100 mg BID ROSELINE Administration Plan 49-year-old male with past medical history of insulin-dependent type 2 diabetes, hypertension, eh-en-Y gastric bypass, alcohol use disorder, alcohol-related liver cirrhosis, gastroparesis, IBS, gallstones, biliary dyskinesia, and diverticulosis who presented to the ED on 05/25/2024 with hypoglycemia secondary to excessive accidental insulin administration. He was admitted to ICU due to persistent hypoglycemia, subsequently downgraded to Telemetry on 05/28/2024. #Moderate hypoglycemia, level 2 - resolved Secondary to accidental insulin administration. Patient states he was drunk at the time and thought he was injecting his Mounjaro. Denied any self-harm or suicide attempt. Was initially monitored in ICU, receiving IVF of D25W. Blood glucose levels stable after resuming solid diet and stopping IVF. Will continue to monitor, likely DC tomorrow. -Regular diet, closely monitor glucose -Bedside BG checks q4h #Alcohol abuse disorder #History of alcohol withdrawal Patient drinks up to 12 shots of vodka daily. He admitted to relapse following admission at [facility] for alcohol withdrawal in the past week. After discharge patient resumed drinking, last drink day before admission. Patient received CIWA protocol, CIWA scores very mild with Librium, titrating down. -Continue thiamine 100 mg BID and folic acid 1 mg BID -CIWA -Counseling on alcohol cessation #History of hypertension #Sinus tachycardia Patient takes home amlodipine 10 mg qday, carvedilol 25 mg qday, hydrochlorothiazide 12.5 mg qday, lisinopril 40 mg qday. -Continue home carvedilol 25 mg BID -Holding lisinopril, hydrochlorothiazide, and amlodipine due to soft BP #Alcohol-related liver cirrhosis #Transaminitis, downtrending #Elevated total bilirubin #History of gastroparesis #History of IBS #History of biliary dyskinesia #History of eh-en-Y gastric bypass On admission LFTs were elevated with AST 804, ALT 521, have since downtrended. Total bilirubin stable around 2.0. Liver US from 05/25/2024 showed enlarged common bile duct although no definite stones, prominent pancreatic head. CT abdomen from [facility] on 05/19/2024 apparently showed marked hepatomegaly. Maddrey score is -7 MELD-Na score is 20 -Monitor LFTs, currently downtrending -Recommend outpatient GI follow up #History of type 2 diabetes mellitus Patient takes 15 units of glargine twice daily at home and Mounjaro. Presented after accidental overdose with glargine. A1c 5.7%. -Continue to hold insulin -Consulted centrex radio operator -Recommend patient follow-up with PCP for reconciliation of diabetes medication #Normocytic anemia On admission his hemoglobin was 11.6. Most likely secondary to chronic alcohol use. Patient hemoglobins stable, does not require transfusion at the moment, PT, INR, PTT within normal range. 05/28/2024: Hemoglobin dropped from 11.3-9.7 today. Most likely dilutional secondary to extensive fluids. No signs of active bleeding. -Transfuse for Hgb<7 #Hyposmolar hyponatremia #Hypochloremia Sodium on admission was 131. Most likely secondary to alcohol use and underlying liver disease as well as dextrose-water infusions. -Continue sodium tablets 2 gm TID, taper according to sodium levels -Monitor CMP #Hypomagnesemia - resolved Diet and fluids: Regular diet, monitor glucose closely DVT prophylaxis: Heparin subQ GI prophylaxis: Not indicated CODE STATUS: Full Code Plan of care discussed with senior resident Dr. Negron PGY?[address] Canseco. Jj Park MD PGY?1 Attending Provider Attestation/Addendum I have examined the patient, reviewed labs and imaging findings, discussed the case with the resident(s), and reviewed entered orders. I agree with the plan of care as outlined in this note, with these additional summaries/recommendations: Patient seen at bedside. Patient downgraded overnight from the ICU for symptomatic hypoglycemia. Patient reports he accidentally injected himself with long-acting insulin instead of his Mounjaro while intoxicated. Patient seen eating lunch and appears to be tolerating well. We will discontinue dextrose containing fluids for now and continue frequent fingerstick checks. If glucose drops we will resume dextrose fluids. Patient was counseled on medication administration and showed understanding. Patient also has a significant history of alcohol use and has been receiving Librium plus CIWA. Discontinue Librium today and continue CIWA. Patient was also noted to have transaminitis secondary to alcohol use. Recommend outpatient GI follow-up. Patient's A1c returned 5.7% and likely no longer requires outpatient insulin. We will continue to avoid insulin while inpatient. Patient has underlying cirrhosis secondary to alcohol use with signs of synthetic liver dysfunction. Counseled on alcohol cessation and outpatient follow-up with gastroenterology. Patient updated on the plan and in agreement. Encouraged to continue to increase his oral intake. Repeat hematology and chemistry panel in AM. Dr. Harleen MD
[2024-05-30] VITALS (42 sets, daily range): BP systolic 111–141; BP diastolic 71–104; PULSE 98–115; RESP 10–96; TEMP 36.6; O2SAT 99
[2024-05-30] MEDS: LORazepam 0.5 MG TABLET 1 MG PO ×2 (03:34→08:04)
[2024-05-30 05:12] LABS: Basophils # (Auto) 0.1 Thou/mm3 (0.0-0.2); Basophils % (Auto) 1 % (0-2.5); Eosinophils # (Auto) 0.2 Thou/mm3 (0.0-0.5); Eosinophils % (Auto) 3 % (0-10); Hematocrit 25.2 % (41.0-53.0); Immature Granulocytes % (Auto) 3 % (0-0); Immature Granulocytes Auto 0.21 Thou/mm3 (0.00-0.00); Lymphocytes # (Auto) 1.6 Thou/mm3 (1.0-4.8); Lymphocytes % (Auto) 24 % (10-50); Mean Corpuscular HGB Conc 34.1 g/dl (31.0-37.0); Mean Corpuscular Hemoglobin 31.2 pg (25.0-35.0); Mean Corpuscular Volume 91 fL (80-100); Monocytes # (Auto) 0.6 Thou/mm3 (0.0-0.8); Monocytes % (Auto) 9 % (0-12); Neutrophils % (Auto) 60 % (37-80); Nucleated Red Blood Cell # 0.02 Thou/mm3 (0.00-0.00); Nucleated Red Blood Cell % 0 /100 WBC (0); Platelet Count 428 Thou/mm3 (140-440); RDW Standard Deviation 62.4 fL (35.1-43.9); Red Blood Count 2.76 Miln/mm3 (4.50-5.90); White Blood Count 6.7 Thou/mm3 (3.8-10.6)
[2024-05-30 05:16] LABS: Hemoglobin 8.6 g/dL (13.5-16.0)
[2024-05-30 05:21] LABS: INR 0.9 (0.9-1.3); Prothrombin Time 10.3 Seconds (9.0-12.2)
[2024-05-30 05:36] LABS: Alanine Aminotransferase 211 U/L (10-49); Albumin, Serum 2.7 gm/dL (3.5-5.0); Albumin/Globulin Ratio 1.2 (1.2-2.2); Alkaline Phosphatase 374 U/L (46-116); Anion Gap 8 (7-16); Aspartate Amino Transferase 172 U/L (0-34); BUN/Creatinine Ratio 13 Ratio (12-20); Bilirubin,Total 1.5 mg/dL (0.3-1.2); Blood Urea Nitrogen 10 mg/dL (9-23); Calcium 7.8 mg/dL (8.3-10.6); Calcium (Corrected) 8.8 mg/dL (8.5-10.1); Carbon Dioxide 23.5 mMol/L (20.0-31.0); Chloride 106 mMol/L (98-107); Creatinine (Component) 0.8 mg/dL (0.6-1.3); Globulin 2.3 gm/dL (2.3-3.5); Glucose 124 mg/dL (74-106); Osmolality,Calculated 273 (275-295); Phosphorous 4.2 mg/dL (2.4-5.1); Potassium 4.3 mMol/L (3.4-5.1); Sodium 137 mMol/L (136-145); eGFR > 60 See Note
[2024-05-30] MEDS: HEPARIN SOD INJ 5000 UNIT/ML VIAL SC (05:57)
[2024-05-30] MEDS: SODIUM CHLORIDE 1 GM TABLET 2 GM PO (05:58)
[2024-05-30] MEDS: THIAMINE 100 MG TABLET PO (08:04)
[2024-05-30] MEDS: FOLIC ACID 1 MG TABLET PO (08:04)
[2024-05-30] MEDS: carVEDILOL 12.5 MG TABLET 25 MG PO (08:05)
[2024-05-30] MEDS: ACETAMINOPHEN 325 MG TABLET 650 MG PO (08:05)
--- NOTE | 2024-05-30 12:07 | CHAP ---
Patient was visited by the Spiritual Care Volunteer from whom he received communion. (Volunteer was in the hospital from 11:00-12:07).
--- NOTE | 2024-05-30 14:12 | PD.RESDS ---
Planned Discharge Date 05/30/24 DS: Providers Provider Date of admission: 05/26/24 08:08 Primary care physician: Physician No Primary/Family Admitting Provider: Rick Duggan MD Attending Provider on Admission: Leland Canseco MD Attending Provider on DC: Ese Negron MD Discharging Provider: Ese Negron MD DS: Diagnosis Problem List Completed Was Problem List Reviewed/Reconciled?: Yes Hospital Course Hospital Course Hospital course: Patient is a 49-year-old male with past medical history of recent EtOH withdrawal, insulin-dependent type 2 diabetes, hypertension, eh-en-Y gastric bypass, alcohol use disorder, alcohol-related liver cirrhosis, gastroparesis, IBS, gallstones, biliary dyskinesia, and diverticulosis who presented to the ED on 05/25/2024 with hypoglycemia secondary to excessive accidental insulin administration and admitted to ICU initially due to persistent hypoglycemia, subsequently downgraded to telemetry on 05/28/2024. Patient denied any self-harm or suicide attempt. Throughout hospital stay, patient was placed on D25W drip to help correct his BG level above 70. Patient's D25W drip discontinued yesterday, and renal function within normal limits today. Patient's A1c during his hospitalization was 5.7%, and educated patient on importance of hydration and glucose control. At this time, patient will be discharged only on home Mounjaro, and will discontinue all of his insulin and his oral diabetic medications to avoid further hypoglycemia. Patient also started on his home Carvedilol to help control his HR and BP. Pt seen and examined at bedside. Pt denies any complaints. Pt is medically cleared to be discharged today with the following instructions: All questions were answered recommendation were given to come back to the emergency room if he is not feeling well or symptoms does not improve Follow-up with PCP 5 to 7 days after discharge - Continue taking only your Mounjaro and continue monitoring your blood glucose ? Discontinue glyburide/metformin ? Discontinue insulin ? Discontinue hydrochlorothiazide ? Repeat CMP in 7 days for follow-up transaminitis ? Patient was counseled about importance of quit drinking and risks of alcohol abuse #Moderate hypoglycemia, level 2 - resolved #Alcohol abuse disorder #History of alcohol withdrawal #History of hypertension #Sinus tachycardia #Alcohol-related liver cirrhosis #Transaminitis, downtrending #Elevated total bilirubin #History of gastroparesis #History of IBS #History of biliary dyskinesia #History of eh-en-Y gastric bypass #History of type 2 diabetes mellitus #Normocytic anemia #Hyposmolar hyponatremia #Hypochloremia #Hypomagnesemia - resolved Plan of care discussed with attending Dr. Canseco. Ese Negron MD PGY?2 Status at Discharge Cognitive/behavioral status at discharge: stable Time Spent with Patient Time attestation: Total time spent providing and/or coordinating discharge services: 35 Exam Vital Signs Temp Pulse Resp BP Pulse Ox O2 Del Method 97.8 F 98 20 111/75 99 Room Air 05/30/24 11:55 05/30/24 11:55 05/30/24 11:55 05/30/24 11:55 05/30/24 11:55 05/30/24 11:55 Narrative Exam General Appearance: Pt in NAD sitting comfortably in bed. HEENT: NC/AT, no scleral icterus, no conjunctival pallor, MMM Lungs: CTAB, no wheezes or crackles appreciated CVS: RRR, S1/S2 heard, no murmurs or rubs appreciated ABD: Soft, non-tender, non-distended, BS + in all 4 quadrants EXT: no deformity/edema/lesions/cyanosis/clubbing, radial pulses 2+ BL, DP pulses 2 + BL SKIN: Skin exam normal without any rashes. Neuro: A&O x 3. No gross neurological deficits. Motor and sensory grossly intact in B/L UL and LL. Psych: Appropriate mood and affect Discharge Plan Plan Patient Disposition: HOME (Self Care) Patient condition on transfer: Stable Care Plan Goals: All questions were answered recommendation were given to come back to the emergency room if he is not feeling well or symptoms does not improve Follow-up with PCP 5 to 7 days after discharge - Continue taking only your Mounjaro and continue monitoring your blood glucose ? Discontinue glyburide/metformin ? Discontinue insulin ? Discontinue hydrochlorothiazide ? Repeat CMP in 7 days for follow-up transaminitis ? Patient was counseled about importance of quit drinking and risks of alcohol abuse Prescriptions/Referrals Prescriptions/Med Rec: New folic acid 1 mg Tablet 1 mg PO BID 30 Days Qty: 60 0RF thiamine mononitrate (vit B1) 100 mg Tablet 100 mg PO BID Qty: 30 0RF carvedilol [Coreg] 25 mg tablet 25 mg PO BID 30 Days Qty: 60 0RF Rx Instructions: must administer with a meal/food lisinopril 20 mg Tablet 40 mg PO QDAY 30 Days Qty: 60 0RF Continued albuterol sulfate [ProAir HFA] 8.5 GM HFA aerosol inhaler 1 - 2 puff Inhalation Q6HR PRN (Reason: WHEEZING) Qty: 1 0RF Rx Instructions: Please give and use spacer Discontinued Levemir FlexPen 100 U/ML insulin pen 42 unit SQ QPM Qty: 0 Glyburide/Metformin Hcl (Glyburide-Metformin 5-500 Mg) 1 TAB tablet PO BID Qty: 0 Insulin Lispro (Humalog Mix 75/25 Pen) 3 ML INSULN.PEN 22 units SQ QAM Qty: 0 Referrals: No Primary/Family,Physician [Primary Care Provider] - Patient/Caregiver Discharge Instructions Discharge Activity: activity as tolerated Education Materials: Diabetes and Drinking Alcohol, Hypoglycemia (Low Blood Sugar), Diabetes: Caring for Your Body, Glucose Check Steps, Hypoglycemia Steps Print Language: Setswana Stand Alone Forms: Dionne Award Info., Patient Portal Info Letter Discharge Order Discharge Orders: Discharge (Routine); Ordered 05/30/24 Ordered By: Natacha Corbett Quality Discharge Quality Measures VTE prophylaxis MD Attestestation MD Attestation I have examined the patient, reviewed labs and imaging findings, discussed the case with the resident(s), and reviewed entered orders. I agree with the plan of care as outlined in this note. Time spent: [address] Harleen MD
== END 2024-05-30 12:00 | disposition home or self-care (01) | DRG 812 ==
LOC: SERX 23:48 → SERHOLD 05-26 00:25 → S2SX 05-26 07:50
PROVIDERS: Internal Medicine; Student in an Organized Health Care Education/Training Program; Admitting Provider Internal Medicine; Emergency Provider Emergency Medicine; Visit Provider Student in an Organized Health Care Education/Training Program
DX: T38.3X1A Poisoning by insulin and oral hypoglycemic [antidiabetic] drugs, accidental (unintentional), initial encounter (principal); E11.649 Type 2 diabetes mellitus with hypoglycemia without coma; K70.10 Alcoholic hepatitis without ascites; D64.9 Anemia, unspecified; F10.139 Alcohol abuse with withdrawal, unspecified; K70.30 Alcoholic cirrhosis of liver without ascites; Y90.2 Blood alcohol level of 40-59 mg/100 ml; I10 Essential (primary) hypertension; E11.43 Type 2 diabetes mellitus with diabetic autonomic (poly)neuropathy; K31.84 Gastroparesis; E87.6 Hypokalemia; E87.1 Hypo-osmolality and hyponatremia; K58.9 Irritable bowel syndrome, unspecified; K82.8 Other specified diseases of gallbladder; E87.8 Other disorders of electrolyte and fluid balance, not elsewhere classified; E83.42 Hypomagnesemia; Z98.84 Bariatric surgery status; Z79.4 Long term (current) use of insulin; Z79.899 Other long term (current) drug therapy; E16.A2 Hypoglycemia level 2
CPT/HCPCS: 36415; 71045; 76705; 80048; 80053; 80076; 80307; 80320; 82140; 83036; 83735; 84100; 84443; 85014; 85018; 85025; 85610; 85730; 87081; 93005; 96365; 96366; 96367; 96372; 99291; J0360; J1610; J1643; J2060; J2470; J2560; J2765; J3430; J3475; J3480; J7042; J7050; A9270; G0480

== ENCOUNTER 2024-06-17 08:00 | Day surgery (SDC) | payer MEDICAID, SELFPAY ==
[2024-06-16 15:01] VITALS: BMI 26.2
[2024-06-17] VITALS (14 sets, daily range): BP systolic 152–199; BP diastolic 86–122; PULSE 92–134; RESP 12–20; TEMP 36.4–36.7; O2SAT 98–100; BMI 27.8
[2024-06-17] MEDS: RINGERS LACTATED 1000 ML 1,000 ML 20 ML IV (10:09)
[2024-06-17] MEDS: BENZOCAINE 20% (Hurricaine) SPRAY 1 DOSE TOP (10:11)
[2024-06-17] MEDS: DiphenhydrAMINE INJ 50 MG/ML VIAL 25 MG IV (10:16)
[2024-06-17] MEDS: fentaNYL CIT INJ 50 mCg/ML AMP 2ML (ASD USE ONLY) IV (10:29)
[2024-06-17] MEDS: MIDAZOLAM INJ 1 MG/ML VIAL 2 ML (ASD USE ONLY) 2 MG IV (10:29)
--- NOTE | 2024-06-17 11:48 | SUR.PHASEII ---
1120 at bed side speaking to patient regarding findings and instructed me to call his office so they can call in a scrip of Omeprazole 40mg by mouth twice for 2 months. Kandi Montesinos RN called and made aware of scrip that needed to be called into the patient preferred pharmacy. Patient was able to verbalize understanding of findings and new scrip that would be called in.
== END 2024-06-17 11:30 | disposition home or self-care (01) ==
PROVIDERS: PCP Student in an Organized Health Care Education/Training Program; Referring Provider Internal Medicine Gastroenterology; Visit Provider Internal Medicine Gastroenterology
PROC: 0DBE8ZX Excision of Large Intestine, Via Natural or Artificial Opening Endoscopic, Diagnostic (ICD-10-PCS; CPT 45380; principal; 2024-06-17 14:15)
PROC: (CPT 43239; 2024-06-17 14:15)
DX: D12.5 Benign neoplasm of sigmoid colon (principal); K64.1 Second degree hemorrhoids; K57.30 Diverticulosis of large intestine without perforation or abscess without bleeding; K31.89 Other diseases of stomach and duodenum; K29.50 Unspecified chronic gastritis without bleeding
CPT/HCPCS: 45385; 45380; A4217; A4649; J1200; J2250; J3010; J7120; A9270